=== PATIENT | female | born 1960 | race African-American/Black ===

== ENCOUNTER 2018-08-12 14:55 | Inpatient (IN) | payer MEDICAID ==
[~2018-08-12] VITALS: Ht 177.8 cm; Wt 49.6 kg
[~2018-08-12 14:55] MED LIST: ALEVE 220MG220 MG PO; LEVSIN0.125 M1 PO; NORCO 325 MG-51 TAB PO; PERCOCET 325 MG1 TA2 PO; PRIL40 PO; ULTRAM 50MG TAB50 MG PO; ZOFRAN8 MG PO
[2018-08-12 15:42] LABS: BASO # 0.1 (0.0-0.2); BASO % 0.7 % (0.0-2.0); EOS # 0.2 (0.0-0.7); EOS % 2.4 % (0-4.0); GRAN # 6.9 (1.4-6.5); GRAN % 68.2 % (42.2-75.2); HEMATOCRIT 40.9 % (37.0-47.0); HEMOGLOBIN 14.8 g/dl (12.5-16.0); LYMPH # 2.1 (1.2-3.4); LYMPH % 20.6 % (20.0-51.0); MEAN CELL VOLUME 77 fl (80.0-100.0); MEAN CORPUSCULAR HEMOGLOBIN 28 pg (27.0-31.0); MEAN CORPUSCULAR HGB CONC 36 g/dl (33.0-37.0); MONO # 0.8 (0.1-0.6); MONO % 7.7 % (1.7-9.3); PLATELET COUNT 221 K/mm3 (130-400); RED BLOOD COUNT 5.34 M/mm3 (4.10-5.30); REDCELL DISTRIBUTION WIDTH-CV 14.2 % (11.5-14.5)
[2018-08-12 15:52] LABS: COLLECTION METHOD CATHETER
[2018-08-12 16:04] LABS: MUCOUS Present /lpf; PH 6 (5-8); SQUAMOUS EPITHELIAL 0-2 /hpf; URINE APPEARANCE Clear; URINE BACTERIA None Seen /hpf; URINE BILIRUBIN Negative (NEGATIVE); URINE BLOOD Negative (NEGATIVE); URINE COLOR Yellow; URINE GLUCOSE Negative (NEGATIVE); URINE KETONE Trace (NEGATIVE); URINE LEUKOCYTE ESTERASE Trace (NEGATIVE); URINE NITRATE Negative (NEGATIVE); URINE PROTEIN(semi-quant) Negative (NEGATIVE)
[2018-08-12 16:05] LABS: TRICYCLIC ANTIDEPRESS URINE NEGATIVE
[2018-08-12 16:38] LABS: ALANINE AMINOTRANSFERASE 6 U/L (9-52); ALBUMIN 4.6 gm/dL (3.5-5.0); ALKALINE PHOSPHATASE 129 U/L (50-136); ANION GAP 11 mmol/L (7-16); AST,SGOT 29 U/L (15-37); BILIRUBIN,TOTAL 0.7 mg/dL (0.0-1.0); BLOOD UREA NITROGEN 9 mg/dL (7-17); CALCIUM 10.9 mg/dL (8.4-10.2); CARBON DIOXIDE 19 mmol/L (22-30); CHLORIDE 109 mmol/L (98-107); CREATINE KINASE 77 U/L (30-135); CREATININE, serum 0.61 (0.52-1.25); GLUCOSE 119 mg/dL (74-106); MAGNESIUM 1.8 mg/dL (1.6-2.3); POTASSIUM 3.6 mmol/L (3.4-5.0); SALICYLATE 6.9 mg/dL; SODIUM 139 mmol/L (137-145); TOTAL PROTEIN 8.4 gm/dL (6.4-8.2)
[2018-08-12 16:40] LABS: ACETAMINOPHEN < 10 ug/mL (10-30); ALCOHOL(ethanol),MEDICAL < 10 mg/dL; C-REACTIVE PROTEIN < 0.5 mg/dL (0.0-0.9)
[2018-08-12 16:52] LABS: TROPONIN-I < 0.012 ng/mL (0.000-0.035)
[2018-08-12 16:57] LABS: LIPASE 7460 U/L (23-300)
[2018-08-12 19:48] VITALS: BP 183/87; PULSE 92; TEMP 98.9
--- NOTE | 2018-08-12 19:50 | NUR ---
PT ADMITTED TO ROOM. THIS NURSE AND 2 HIDE AND SKIN COLERER'S TANSFERED PT FROM ER COT TO BED IN ROOM. PT WAS ONLY RESPONDING BY SAYING "MMHM" WHEN ASKED QUESTIONS, PT LAYING WITH EYES CLOSED. PT HAD SOID HERSELF AND DIDNT REALIZE IT, THIS NURSE AND AIDES CLEANED HER UP. PT WAS SLID FROM COT TO BED AND THEN ASSISED TO BE COMFORTABLE.
[2018-08-12 20:31] VITALS: BP 156/79; PULSE 84
--- NOTE | 2018-08-12 21:05 | NUR ---
THIS NURSE ADMINSTERED IV PROTONIX AND STARTED IV FLUIDS ORDERED. LOAN ORIGINATOR ORDER ACKNOWLEDGED, THIS NURSE DIDNT START LOAN ORIGINATOR AT THIS TIME. PT ASLEEP AND NOT AWAKENING BESIDES JUST MOVING ARMS AND HEAD AND GOING "MMHM" WHEN ASKED QUESTIONS, NOT OPENING EYES SPONTANEOUSLY.
[2018-08-12 22:02] VITALS: BP 152/73; PULSE 88; TEMP 99.2
--- NOTE | 2018-08-12 23:30 | NUR ---
PT AWOKE, EDUCATION PROVIDED ON METAL LATHER, PAPERS SIGNED AND PUT IN CHART. AWAITING METAL LATHER MEDICATION AT THIS TIME, VACCINATOR OBTAINING AT THIS TIME. PT WAS STATED SHE WANTED AND NEEDED TO GO TO SLEEP. PT HAS SOME ANXIOUSNESS ABOUT "NEEDING TO SLEEP" STATED HER PAIN WAS STILL THERE AND NOT BAD IT HAD BEEN EARLIER WHEN SHE WENT TO E.D.
[2018-08-12 23:49] VITALS: BP 164/75; PULSE 78; TEMP 98.7
[2018-08-13] VITALS (17 sets, daily range): BP systolic 141–173; BP diastolic 71–109; PULSE 63–89; TEMP 98.2–100.2
--- NOTE | 2018-08-13 00:15 | NUR ---
PT LAYING IN BED WITH EYES CLOSED. APPEARS TO BE SLEEPING AT THIS TIME.
--- NOTE | 2018-08-13 02:00 | NUR ---
THIS NURSE RECIEVED TRACTOR TRAILER TECHNICIAN DILAUDID FROM CHALK CUTTER AT THIS TIME. PT AWAKE NOW AND RATING PAIN AT A 6. SETTING UP TRACTOR TRAILER TECHNICIAN AT THIS TIME.
--- NOTE | 2018-08-13 02:30 | NUR ---
PT RECIEVED FIRST DOSE OF DILADID, PT REMAINS AWAKE AT THIS TIME. VITALS WNL. PT STATED SHE HAS A SMALL HEADACHE. WILL CONTINUE TO MONITOR
--- NOTE | 2018-08-13 05:12 | NUR ---
PT HAS C/O HEADACHE. PT REQUESTING TYLENOL IF ABLE, ATTEMPTED TO CALL JORDAN FERNANDO FOR POSSIBLE ORDER, UNABLE TO GET AHOLD OF HER AT THIS TIME. PT HAD SLATER APPRENTICE ABLE TO GIVE ANOTHER DOSE OF DILAUDID. GAVE PT A DOSE OF DILAUDID VIA SLATER APPRENTICE IN ATTEMPTS TO EASE HEADACHE PAIN.
--- NOTE | 2018-08-13 05:42 | NUR ---
THIS NURSE CONTACTED ZHANG ORTEGA ABOUT TYLENOL, ABDULLAHI STATED THAT THE DILADID IS ALL THIS PT IS GOING TO BE ABLE TO HAVE AND ESPECIALLY SINCE SHE IS NPO. WILL INFORM PT
[2018-08-13 08:00] LABS: BASO # 0.1 (0.0-0.2); BASO % 0.5 % (0.0-2.0); EOS % 0.3 % (0-4.0); GRAN # 6.5 (1.4-6.5); GRAN % 66.1 % (42.2-75.2); LYMPH # 2.2 (1.2-3.4); LYMPH % 22.8 % (20.0-51.0); MEAN CELL VOLUME 77 fl (80.0-100.0); MEAN CORPUSCULAR HGB CONC 36 g/dl (33.0-37.0); MEAN PLATELET VOLUME 11.5 fl (7.4-10.4); PLATELET COUNT 227 K/mm3 (130-400); RED BLOOD COUNT 4.46 M/mm3 (4.10-5.30)
[2018-08-13 08:01] LABS: HEMATOCRIT 34.4 % (37.0-47.0); HEMOGLOBIN 12.4 g/dl (12.5-16.0); MEAN CORPUSCULAR HEMOGLOBIN 28 pg (27.0-31.0)
[2018-08-13 08:20] LABS: CALCIUM 9.9 mg/dL (8.4-10.2); CHOLESTEROL RISK RATIO 2.2; CREATININE, serum 0.57 (0.52-1.25); POTASSIUM 3.7 mmol/L (3.4-5.0)
--- NOTE | 2018-08-13 08:28 | NUR ---
Pt assessment complete. Pt is drowsy but arousable, she is oriented to person and place only. Pt reports pain 6/10 to abdomen and bilateral legs, ASPHALT TILE FLOOR LAYER pump discussed with patient, who later states again "can you take care of this pain?" Pt instructed to do a demand dose when needing more pain medication, patient pushed green button at that time. Pt denies any SOB or N/V. IVF infusing into LAC without complications. Pt assisted to bedside cammode without complications. Pt has no further needs, call light within reach. Will continue to monitor.
--- NOTE | 2018-08-13 12:53 | NUR ---
While discharging patient's CENTER MEDICAL DIRECTOR pump patient requesting pain medications as soon as possible for pain 11/22. This nurse attempted to administer PRN [place], pt sleeping upon entry, does not appear to be in any distress. Will continue to monitor and administer when patient is more alert.
--- NOTE | 2018-08-13 15:52 | NUR ---
JULIUS met with the patient to discuss discharge plan. The patient lives alone in [place]. She states that her brother (Josh) and sister (Anabella) live in town. She reports that she also has a boyfriend, Hima. She reports independence with ADLs and does not use any DME. The patient's PCP is Dr. Iva Andrea and she receives her medications from [facility]. She reports no difficulties obtaining her meds. The patient does not have advanced directives in EMR, but she states that she believes she has them completed and that they are at her PCP's office. SW contacted her PCP's office. They report they do not have a copy. JULIUS explained and provided the patient with a DPOA-HC form. JULIUS addressed the patient's alcohol and drug use. The patient reports that she used to drink heavier, but that she just has one beer a day or none. She reports that she has been using cocaine every day and that she gets the cocaine from somebody she knows. JULIUS discussed drug and alcohol treatment options. The patient first reported that she would be interested in inpatient treatment. JULIUS discussed how the patient would need to contact [facility] for a screening. The patient then reported that she would not want to go through that process. She states she would rather try outpatient treatment. JULIUS discussed outpatient treatment options in the [place] area and informed the patient that JULIUS can provide the patient with information about the different outpatient treatment centers in [place]. The patient expressed interest in that. SW to provide the patient with that information and continue to follow.
--- NOTE | 2018-08-13 18:09 | NUR ---
Pt drowsy most of the day, she was arousable to voice. Occasional abdominal pain, relieved with PRN pain medications. Pt had no N/V or diarrhea through the day. IVF infusing without complications. Bed alarm in place, call light within reach.
--- NOTE | 2018-08-13 21:10 | NUR ---
PT C/O ABD PAIN 6-7. TO EARLY TO RECIEVE PRN NORCO, ADMINSTERED IV DILAUDID.
--- NOTE | 2018-08-13 22:20 | NUR ---
PT CONTINUES TO HAVE PAIN. ADMINSTERED PO NORCO. PT STATED TAHT SHE WANTED SOMETHING TO SLEEP IF POSSIBLE, GAVE PT PRN BENADRYL. NO OTHER CONSERNS VOICED AT THIS TIME.
[2018-08-14] VITALS (13 sets, daily range): BP systolic 145–183; BP diastolic 69–85; PULSE 57–87; TEMP 97–99.2
--- NOTE | 2018-08-14 00:56 | NUR ---
PT HAS C/O CHEST PAIN. PT VITALS OBTAINED AND LOOKED WNL. PT STATED IT WAS COMING AND GOING AND CHANGED WITH SWALLOWING. PT WAS GIVEN MYLANTA TOO SEE IF EPIGASTRIC RELATED. WILL CONTINUE TO MONITOR
--- NOTE | 2018-08-14 02:30 | NUR ---
PT STATED THAT THE MYLANTA THAT WAS GIVEN HELPED HER CHEST PAIN. ALSO HAD C/O RETURN OF ABD PAIN REQUESTED PRN PAIN PILL. PILL WAS GIVEN. NO OTHER COMPLAINTS AT THIS TIME.
--- NOTE | 2018-08-14 06:21 | NUR ---
SLEPT WELL REST OF PASSENGER ELEVATOR OPERATOR. NO OTHER CONSERNS OR ISSUES VOICED AT THIS TIME.
[2018-08-14 06:57] LABS: BASO # 0.1 (0.0-0.2); BASO % 0.9 % (0.0-2.0); EOS # 0.1 (0.0-0.7); EOS % 0.9 % (0-4.0); GRAN # 3.8 (1.4-6.5); GRAN % 56.1 % (42.2-75.2); HEMOGLOBIN 12.7 g/dl (12.5-16.0); LYMPH # 2.1 (1.2-3.4); MEAN CELL VOLUME 77 fl (80.0-100.0); MEAN CORPUSCULAR HEMOGLOBIN 28 pg (27.0-31.0); MEAN CORPUSCULAR HGB CONC 36 g/dl (33.0-37.0); MONO # 0.8 (0.1-0.6); PLATELET COUNT 215 K/mm3 (130-400); RED BLOOD COUNT 4.54 M/mm3 (4.10-5.30); REDCELL DISTRIBUTION WIDTH-CV 14.2 % (11.5-14.5)
[2018-08-14 06:59] LABS: HEMATOCRIT 34.9 % (37.0-47.0)
[2018-08-14 07:22] LABS: ALBUMIN 4.1 gm/dL (3.5-5.0); BILIRUBIN,TOTAL 1.2 mg/dL (0.0-1.0); CALCIUM 10.5 mg/dL (8.4-10.2); CREATININE, serum 0.55 (0.52-1.25); MAGNESIUM 1.7 mg/dL (1.6-2.3); PHOSPHOROUS 3.7 mg/dL (2.5-4.5); POTASSIUM 3.7 mmol/L (3.4-5.0); TOTAL PROTEIN 7.4 gm/dL (6.4-8.2)
--- NOTE | 2018-08-14 08:01 | NUR ---
Assessment complete. Pt is drowsy but arousable to voice. States she has pain in her ABD rated at a 6/10. Breathing is even and unlabored on room air. LF infusing, remains free of complications, and is CDI. Pt is resting quietly in the bed at this time and she denies further needs. Call light within reach, will continue to monitor.
--- NOTE | 2018-08-14 14:53 | NUR ---
hydralazine 10mg IVP given as ordered for BP 175/71 as ordered over 5 minuets. Patients agrees to administration and verbalizes understanding.
--- NOTE | 2018-08-14 15:09 | NUR ---
JULIUS and JULIUS student followed up with the patient to provide her with information on outpatient treatment options in [place]. The patient reports that she would like to be set up at [facility]. JULIUS contacted Noemi at [facility]. Noemi reports that the phones are down at the locations of the drug and alcohol treatment, but that she will contact and send the patient's information to their coordinator, Janae. She reports that Janae will then contact the patient for the referral and schedule an intake with the patient. JULIUS to inform the patient and continue to follow.
--- NOTE | 2018-08-14 18:29 | NUR ---
Pt has been resting on and off throughout the day. While awake she has had constant pain in her ABD. Pain medication administered on JUN. Pt has been able to tolerate minimal PO intake. She is resting quietly in the bed at this time and she denies further needs. Call light within reach.
--- NOTE | 2018-08-14 19:05 | NUR ---
Report given to ARNOL Cardoso.
--- NOTE | 2018-08-14 21:00 | NUR ---
Completed assessment and medication administration; PT tolerated all cares well; PT able to verbalize complaints and discomforts; PT A&Ox4, BS active x4, lungs CTAB, report of pain treated with PRN medications as ordered, ear plugs offered for aattempts to assist with sleep; No further assessed or reported concerns or complaints at time of exit; PT able to return to a comfortable position in bed with personal items and call light within reach; PT spouse resting in room on window couch; LR running at 100ml/hr to LFR IV; Will continue to monitor. CDA
--- NOTE | 2018-08-14 22:15 | NUR ---
PT refused Hydralazine order for HTN, stating it gave her full body pain when given this afternoon; Hospitalist JORDAN Auguste notified; Will continues to monitor BP status. MARKOSA
[2018-08-15] VITALS (14 sets, daily range): BP systolic 114–159; BP diastolic 53–81; PULSE 54–80; TEMP 98–99.3
--- NOTE | 2018-08-15 03:16 | NUR ---
PT resting intermittenly in bed throughout shift; Continues to complain of 4-6/10 abdominal pain with continues administration of PRN pain medication for pain control; No further acute complaints or concerns at times of rounds; Will continue to monitor. CDA
--- NOTE | 2018-08-15 06:59 | NUR ---
Report given to ARNOL Joseph; No significant changes or concerns at time of shift change. CDA
[2018-08-15 07:09] LABS: BASO # 0.1 (0.0-0.2); BASO % 0.8 % (0.0-2.0); EOS # 0.1 (0.0-0.7); EOS % 0.7 % (0-4.0); GRAN # 4.3 (1.4-6.5); HEMOGLOBIN 12.4 g/dl (12.5-16.0); LYMPH # 2.2 (1.2-3.4); LYMPH % 29.1 % (20.0-51.0); MEAN CELL VOLUME 77 fl (80.0-100.0); MEAN CORPUSCULAR HEMOGLOBIN 28 pg (27.0-31.0); MEAN CORPUSCULAR HGB CONC 36 g/dl (33.0-37.0); MEAN PLATELET VOLUME 11.2 fl (7.4-10.4); MONO # 0.9 (0.1-0.6); MONO % 12.1 % (1.7-9.3); PLATELET COUNT 229 K/mm3 (130-400); RED BLOOD COUNT 4.47 M/mm3 (4.10-5.30)
[2018-08-15 07:10] LABS: HEMATOCRIT 34.2 % (37.0-47.0)
[2018-08-15 07:29] LABS: BILIRUBIN,TOTAL 1.2 mg/dL (0.0-1.0); CALCIUM 10.1 mg/dL (8.4-10.2); CREATININE, serum 0.61 (0.52-1.25); POTASSIUM 3.6 mmol/L (3.4-5.0); TOTAL PROTEIN 7.1 gm/dL (6.4-8.2)
--- NOTE | 2018-08-15 08:00 | NUR ---
Assessment complete. Pt is AXO X3, states she has pain in her ABD rated at a 5/10. Breathing is even and unlabored on room air. LF infusing, remains free of complications, and is CDI. Pt is resting in the bed watching TV at this time and she denies further needs. Call light within reach, will continue to monitor.
--- NOTE | 2018-08-15 11:44 | NUR ---
[facility] contacted the patient to set up an outpatient appointment for drug and alcohol. The patient requested JULIUS to come to her room when they called. JULIUS then met with the patient while she was on the phone with Jeana. An appointment was made for , 08/28, at 0900 at [facility] on [address]. JULIUS informed the patient's PA and the community midwife of the appointment. JULIUS to continue to follow.
--- NOTE | 2018-08-15 18:57 | NUR ---
Pt has been resting on and off throughout the day. She has had constant pain in her ABD. Pain medcation administered on JUN. She is resting quietly in the bed watching TV at this time and she denies further needs. Call light within reach.
--- NOTE | 2018-08-15 19:05 | NUR ---
Report given to ARNOL Cardoso.
--- NOTE | 2018-08-16 00:46 | NUR ---
Completed assessment and medication administration; PT toelrated call cares well; Continues to report midline abdominal pain treated with PRN pain medication; PT A&Ox4, BS active x4, lungs CTA, continues Heparin as VTE, HRRR, LFA IV has LR running at 100ml/hr; No further assessed or verbalized conerns or complaints at time of exit; PT able to return to a comfortable position in bed with personal items and call light within reach; Will continue to monitor. CDA
[2018-08-16 01:44] VITALS: BP 136/66; PULSE 65; TEMP 98.6
--- NOTE | 2018-08-16 02:12 | NUR ---
PT resting well in bed; IV to LFA in place with LR running at 100ml/hr; No further assessed or reported concerns at time of rounds; PT resting in comfortable position in bed with personal items and call light within reach; Will continue to monitor. CDA
[2018-08-16 03:57] VITALS: BP 156/72; PULSE 70; TEMP 98.7
[2018-08-16 05:57] VITALS: BP 154/69; PULSE 56; TEMP 98.5
--- NOTE | 2018-08-16 06:54 | NUR ---
Report given to ARNOL Franklin; No significant changes or concerns at time of shift change. CDA
--- NOTE | 2018-08-16 08:00 | NUR ---
Patient assessment complete. Patient sleeping in bed, easy to arouse. Lung sounds clear throughout, heart RRR, bowel sounds present X4. No edema present. Patient denies SOB, chest pain, dizziness or palpitations. Pulses strong bilaterally. LFA IV has no redness, drainage or edema. Dr. Massey in to see patient, fluids DC'd. Patient complaining of epigastric pain, mostly occuring when she eats. Patient ate some breakfast this morning. patient scoring 0-1 on etoh detox. Neuro checks completed. Denies other needs at this time.
[2018-08-16 08:08] VITALS: BP 136/58; PULSE 63; TEMP 98.6
[2018-08-16 08:16] LABS: BASO # 0.1 (0.0-0.2); BASO % 0.9 % (0.0-2.0); EOS # 0.1 (0.0-0.7); EOS % 1.7 % (0-4.0); GRAN # 3.5 (1.4-6.5); HEMOGLOBIN 11.4 g/dl (12.5-16.0); LYMPH # 2.1 (1.2-3.4); MEAN CELL VOLUME 78 fl (80.0-100.0); MEAN CORPUSCULAR HEMOGLOBIN 28 pg (27.0-31.0); MEAN CORPUSCULAR HGB CONC 36 g/dl (33.0-37.0); MEAN PLATELET VOLUME 11.1 fl (7.4-10.4); MONO # 0.8 (0.1-0.6); MONO % 12.2 % (1.7-9.3); PLATELET COUNT 193 K/mm3 (130-400); REDCELL DISTRIBUTION WIDTH-CV 13.5 % (11.5-14.5)
[2018-08-16 08:25] LABS: HEMATOCRIT 31.8 % (37.0-47.0)
[2018-08-16 08:38] LABS: ALBUMIN 3.6 gm/dL (3.5-5.0); BILIRUBIN,TOTAL 0.8 mg/dL (0.0-1.0); CALCIUM 9.8 mg/dL (8.4-10.2); CREATININE, serum 0.59 (0.52-1.25); POTASSIUM 3.3 mmol/L (3.4-5.0); TOTAL PROTEIN 6.4 gm/dL (6.4-8.2)
[2018-08-16 09:57] VITALS: BP 144/59; PULSE 64; TEMP 98.4
--- NOTE | 2018-08-16 13:50 | NUR ---
Patient requesting "something to help her go to the bathroom". Upon entering, patient in bed, relative/friend in wheelchair, another relative friend on toilet who was originally from the ER. student records specialist assisting "friend" off toilet to wheelchair. Patient up to help "friend" in wheelchair as well. No other needs at this time.
[2018-08-16 14:00] VITALS: BP 149/73; PULSE 57; TEMP 98.3
[2018-08-16] MEDS ORDERED: NORCO 325 MG-51 TAB PO (15:19)
[2018-08-16] MEDS ORDERED: ZOFRAN 4MG T4 MG/TAB PO (15:20)
[2018-08-16] MEDS ORDERED: PROTONIX 40MG T40 MG PO (15:21)
--- NOTE | 2018-08-16 15:45 | NUR ---
Patient being discharged, discharge instructions reviewed and discussed. All questions answered regarding discharge answered. No other questions at this time. LFA IV discontinued. Catheter tip intact. No infiltration or phlebitis. Patient escorted out via wheelchair by this nurse.
== END 2018-08-16 15:45 | disposition home or self-care (01) | DRG 438 ==
LOC: COL.ER 14:55 → EDBD 14:56 → COL.ER 17:19 → MEDICAL 17:19
PROVIDERS: Emergency Medicine; Family Medicine; Physician Assistant; ADMIT Hospitalist
DX: K85.20 Alcohol induced acute pancreatitis without necrosis or infection (principal); E43 Unspecified severe protein-calorie malnutrition; Z68.1 Body mass index [BMI] 19.9 or less, adult; F10.20 Alcohol dependence, uncomplicated; Y90.0 Blood alcohol level of less than 20 mg/100 ml; F17.210 Nicotine dependence, cigarettes, uncomplicated; F14.10 Cocaine abuse, uncomplicated; K52.9 Noninfective gastroenteritis and colitis, unspecified; E83.52 Hypercalcemia; I10 Essential (primary) hypertension; T47.6X1A Poisoning by antidiarrheal drugs, accidental (unintentional), initial encounter
CPT/HCPCS: OP; 99222-AI; 99233-AI; 99239; A9284; C9113; J0360; J1170; J1630; J1644; J2060; J2405; J2765; J3010; J7030; J7120; Q9967

== ENCOUNTER → 2018-08-26 | Outpatient (CLI) | payer MEDICAID ==
[~2018-08-26] MED LIST changes: +PROTONIX 40MG T40 MG PO; +ZOFRAN 4MG T4 MG/TAB PO
[2018-08-26 17:47] LABS: BASO # 0.1 (0.0-0.2); EOS # 0.4 (0.0-0.7); EOS % 5.2 % (0-4.0); GRAN # 3.4 (1.4-6.5); GRAN % 48.6 % (42.2-75.2); HEMOGLOBIN 12.3 g/dl (12.5-16.0); LYMPH # 2.4 (1.2-3.4); MEAN CELL VOLUME 80 fl (80.0-100.0); MEAN CORPUSCULAR HEMOGLOBIN 28 pg (27.0-31.0); MEAN CORPUSCULAR HGB CONC 35 g/dl (33.0-37.0); MEAN PLATELET VOLUME 11.8 fl (7.4-10.4); MONO # 0.8 (0.1-0.6); MONO % 11.1 % (1.7-9.3); PLATELET COUNT 345 K/mm3 (130-400); RED BLOOD COUNT 4.43 M/mm3 (4.10-5.30); REDCELL DISTRIBUTION WIDTH-CV 14.5 % (11.5-14.5)
[2018-08-26 17:49] LABS: ALBUMIN 4.3 gm/dL (3.5-5.0); BILIRUBIN,TOTAL 0.5 mg/dL (0.0-1.0); CREATININE, serum 0.7 (0.52-1.25); POTASSIUM 4.2 mmol/L (3.4-5.0); TOTAL PROTEIN 7.6 gm/dL (6.4-8.2)
[2018-08-26 18:01] LABS: HEMATOCRIT 35.2 % (37.0-47.0)
== END ==
LOC: ZCOL.LAB 16:29
PROVIDERS: Family Medicine
DX: K85.90 Acute pancreatitis without necrosis or infection, unspecified (principal)

== ENCOUNTER → 2018-12-17 | Outpatient (CLI) | payer MEDICAID | LOC: COL.RAD 08:13 | DX: M17.11 Unilateral primary osteoarthritis, right knee (principal) ==

== ENCOUNTER 2019-01-20 06:13 | Emergency (ER) | payer MEDICAID ==
[~2019-01-20] VITALS: Ht 172.7 cm; Wt 50.0 kg
[2019-01-20 06:19] VITALS: TEMP 97.8
[2019-01-20 06:38] LABS: BASO % 0.1 % (0.0-2.0); EOS % 0.4 % (0-4.0); GRAN # 4.4 (1.4-6.5); HEMOGLOBIN 12.7 g/dl (12.5-16.0); LYMPH # 1.9 (1.2-3.4); LYMPH % 26.6 % (20.0-51.0); MEAN CELL VOLUME 81 fl (80.0-100.0); MEAN CORPUSCULAR HEMOGLOBIN 29 pg (27.0-31.0); MEAN CORPUSCULAR HGB CONC 36 g/dl (33.0-37.0); MONO # 0.8 (0.1-0.6); MONO % 10.8 % (1.7-9.3); PLATELET COUNT 235 K/mm3 (130-400); REDCELL DISTRIBUTION WIDTH-CV 14.3 % (11.5-14.5)
[2019-01-20 06:45] LABS: HEMATOCRIT 35.8 % (37.0-47.0)
[2019-01-20 06:50] LABS: PROTHROMBIN TIME 11.1 SECONDS (9.7-12.8)
[2019-01-20 06:52] LABS: ALANINE AMINOTRANSFERASE 10 U/L (9-52); ALBUMIN 4.3 gm/dL (3.5-5.0); ALKALINE PHOSPHATASE 67 U/L (50-136); ANION GAP 7 mmol/L (7-16); AST,SGOT 24 U/L (15-37); BILIRUBIN,TOTAL 0.6 mg/dL (0.0-1.0); BLOOD UREA NITROGEN 17 mg/dL (7-17); CALCIUM 9.5 mg/dL (8.4-10.2); CARBON DIOXIDE 26 mmol/L (22-30); CHLORIDE 106 mmol/L (98-107); CREATININE, serum 0.62 (0.52-1.25); GLUCOSE 89 mg/dL (74-106); MAGNESIUM 2.2 mg/dL (1.6-2.3); POTASSIUM 4.4 mmol/L (3.4-5.0); SODIUM 138 mmol/L (137-145); TOTAL PROTEIN 7.3 gm/dL (6.4-8.2)
[2019-01-20 06:53] LABS: PARTIAL THROMBOPLASTIN TIME 25.5 SECONDS (26.0-37.0)
[2019-01-20 06:57] LABS: ALCOHOL(ethanol),MEDICAL < 10 mg/dL
[2019-01-20 07:04] LABS: COLLECTION METHOD CATHETER
[2019-01-20] MEDS ORDERED: MOBIC 7.5MG7.5 MG PO (07:06)
[2019-01-20] MEDS ORDERED: VOLTAREN SR25 MG/TAB PO (07:07)
[2019-01-20] MEDS ORDERED: FEMRING0.1 MG/24 VG (07:07)
[2019-01-20] MEDS ORDERED: BENTYL 10MG10 MG/CAP PO (07:07)
[2019-01-20 07:11] LABS: MUCOUS Present /lpf; PH 6 (5-8); SQUAMOUS EPITHELIAL 0-2 /hpf; URINE APPEARANCE Clear; URINE BACTERIA Rare /hpf; URINE BILIRUBIN Negative (NEGATIVE); URINE BLOOD Negative (NEGATIVE); URINE COLOR Yellow; URINE GLUCOSE Negative (NEGATIVE); URINE KETONE Negative (NEGATIVE); URINE LEUKOCYTE ESTERASE Negative (NEGATIVE); URINE NITRATE Negative (NEGATIVE); URINE PROTEIN(semi-quant) Negative (NEGATIVE); URINE UROBILINOGEN Negative (NEGATIVE)
[2019-01-20 07:14] LABS: TROPONIN-I < 0.012 ng/mL (0.000-0.035)
[2019-01-20 07:27] LABS: TRICYCLIC ANTIDEPRESS URINE NEGATIVE
[2019-01-20 07:30] VITALS: BP 136/76; PULSE 59
== END 2019-01-20 07:40 | disposition short-term general hospital (02) ==
LOC: COL.ER 06:13
PROVIDERS: Emergency Medicine
DX: I63.9 Cerebral infarction, unspecified (principal); I10 Essential (primary) hypertension; F10.20 Alcohol dependence, uncomplicated; F17.210 Nicotine dependence, cigarettes, uncomplicated
CPT/HCPCS: J7030; Q9967

== ENCOUNTER 2019-02-01 15:19 | Inpatient (IN) | payer MEDICAID ==
[~2019-02-01] VITALS: Ht 170.2 cm; Wt 50.0 kg
[~2019-02-01 15:19] MED LIST changes: +BENTYL 10MG10 MG/CAP PO; +FEMRING0.1 MG/24 VG; +MOBIC 7.5MG7.5 MG PO; +VOLTAREN SR25 MG/TAB PO
[2019-02-01] MEDS ORDERED: ASPIRIN 81M81 MG/TA2 PO (15:42)
[2019-02-01] MEDS ORDERED: LIPITOR 40MG TA40 MG PO (15:42)
[2019-02-01] MEDS ORDERED: FOLIC ACID 11 MG/TA1 PO (15:43)
[2019-02-01] MEDS ORDERED: NATURE'S BLEND100 M2 PO (15:43)
[2019-02-01] MEDS ORDERED: HEPARIN SOD5000 U/ML SQ (15:47)
--- NOTE | 2019-02-01 19:35 | NUR ---
Report from LUDA Najera nurse, she stated pt was to discharge around 1400 via "'s friend's car." Called Dania at 1830 when pt had not yet arrived, she returned call to state they were almost to [facility]. Pt arrived in ER admissions at 1914 with friend and report has been given to ARNOL Ramirez. SQL APPLICATION DEVELOPER is in room doing vitals. This nurse entered order set and completed med rec and plan of care. Remaining admission checklist Ashley agrees to do. Informed IPR liason Ellie of pt's delay, left voicemail that pt arrived.
[2019-02-01 19:58] VITALS: BP 100/48; PULSE 58; TEMP 99.2
--- NOTE | 2019-02-01 22:56 | NUR ---
Patient arrived to the unit at 1930 to room 340. Patient transferred to bed. Bed alarm on. Fall risk bracelet in place as well as restricted limb bracelet. Patient resting in bed, watching TV. Call light within reach.
--- NOTE | 2019-02-02 01:55 | NUR ---
Patient resting in bed. Initial assessment complete. Up to BSC x1. Small formed BM noted. Denies pain. Bed alarm on. Call light within reach.
--- NOTE | 2019-02-02 05:46 | NUR ---
Patient had uneventful night. Resting in bed. Up to BSC one time and had small formed BM. Denies pain. Bed alarm on. Call light within reach.
[2019-02-02 06:22] VITALS: BP 90/39; PULSE 61; TEMP 98.2
--- NOTE | 2019-02-02 08:45 | NUR ---
Patient resting in bed at this time, call light in reach and bed alarm on. Patient was incontinent of urine this morning and was not able to tell staff when she was wet. Whe was able to roll from L to R independently. Patient denies pain this morning.
--- NOTE | 2019-02-02 09:50 | NUR ---
Patient is working with therapy at this time. She refused her first breakfast meal this morning. The kitchen was called and patient requested eggs and etienne. This was delivered after 8:30 AM this morning. Patient did eat the second meal delivered to her. shauna Lamb was called and she will discuss menus with patient today so she is aware of the menu and schedule. Patient has dysphagia and staff will need to continue to be patient's advocate with her food orders.
--- NOTE | 2019-02-02 10:13 | NUR ---
Initial visit; Patient thanked Finger Waver for stopping and letting her know of the availability of spiritual care and Finger Waver's presence throughout the day.
[2019-02-02 17:04] VITALS: BP 106/53; PULSE 66; TEMP 98.3
--- NOTE | 2019-02-02 19:58 | NUR ---
Patient rests in bed. Unable to state , year or month. Reports pain RLL but declines tylenol or warm pack. Ice cream given for snack.
--- NOTE | 2019-02-02 22:35 | NUR ---
RESTS QUIETLY IN BED RESPIRATIONS WITH EASE. CALLED AND STATES WILL BE INTO SEE PATIENT TOMORROW AM.
--- NOTE | 2019-02-03 02:42 | NUR ---
Patient has been resting quietly in bed. Up to BS earlier with STOP ATTACHER and was incontinent of urine.
[2019-02-03 04:45] VITALS: BP 103/47; PULSE 63; TEMP 98.2
--- NOTE | 2019-02-03 06:22 | NUR ---
Awakened for am med/reviewed and given. States "doing ok". Returns to resting with eyes closed.
--- NOTE | 2019-02-03 10:00 | NUR ---
Patient attended therapies this morning. Denied pain. Reported sleeping well last night, but yawning alot this morning. Patient's is here visiting at this time.
--- NOTE | 2019-02-03 12:54 | NUR ---
Patient resting in recliner at this time, resting on couch. Patient denies pain or any questions at this time.
[2019-02-03 17:31] VITALS: BP 124/53; PULSE 63; TEMP 98.3
--- NOTE | 2019-02-03 19:25 | NUR ---
Patient asked for a suppository and this was administered. Approx. 30 to 40 minutes later staff heard patient's bed alarm go off. Upon staff entering room patient was found being transferred by her without a gait belt to the toilet. Patient's took BSC from bathroom and placed next to patient's bed and said that his was trying to get up on her own so decided to help her. Patient and were educated on the need to use the call light and wait for staff to arrive before transferring. Patient's seem to voice understanding. Patient was found transferring on her own earlier today per Lalitha/RAI. Will continue to monitor. Communicated this to night nurse.
--- NOTE | 2019-02-03 19:32 | NUR ---
This nurse communicated to Soot Blower nurse that patient's is spending the night in her room. He brought his bag of clothing with him, so not sure how long he will be staying. He was supposed to bring patient some clothing, but did not do that today. Staff will be trying to wash her clothing tonight. sewer system supervisor was notified of this above as well.
--- NOTE | 2019-02-03 20:30 | NUR ---
Patient awake and reports pain right knee. HS meds along with tramadol for pain reviewed and taken 1 at a time. Snack of ice cream given. Patient continent at this time. Right side remains flaccid. at bedside resting on window couch.
--- NOTE | 2019-02-04 02:12 | NUR ---
Rests with eyes closed. Respirations with ease.
[2019-02-04 04:05] VITALS: BP 98/50; PULSE 55; TEMP 98
--- NOTE | 2019-02-04 05:44 | NUR ---
PATIENT RESTS WITH EYES CLOSED.
--- NOTE | 2019-02-04 06:30 | NUR ---
Bedside shift report received from ARNOL Leal. Pt in bed resting on side, denies needs, will continue to monitor.
[2019-02-04 06:56] LABS: HEMOGLOBIN 11.4 g/dl (12.5-16.0); MEAN CELL VOLUME 83 fl (80.0-100.0); MEAN CORPUSCULAR HEMOGLOBIN 29 pg (27.0-31.0); MEAN CORPUSCULAR HGB CONC 35 g/dl (33.0-37.0); MEAN PLATELET VOLUME 10.8 fl (7.4-10.4); PLATELET COUNT 310 K/mm3 (130-400); RED BLOOD COUNT 3.96 M/mm3 (4.10-5.30); REDCELL DISTRIBUTION WIDTH-CV 14.2 % (11.5-14.5)
[2019-02-04 06:59] LABS: HEMATOCRIT 32.7 % (37.0-47.0)
[2019-02-04 07:10] LABS: CALCIUM 10.3 mg/dL (8.4-10.2); CREATININE, serum 0.52 (0.52-1.25); MAGNESIUM 1.8 mg/dL (1.6-2.3); POTASSIUM 4.1 mmol/L (3.4-5.0)
--- NOTE | 2019-02-04 08:56 | NUR ---
Admission QIM scores were reviewed by the team. Code of 1 chosen for lower body dressing was determined by team discussion to be the most usual performance for this patient during the assessment period. Code of 3 chosen for lying to sitting side of bed was determined by team discussion to be the most usual performance for this patient during the assessment period. Code of 3 chosen for sit to stand was determined by team discussion to be the most usual performance for this patient during the assessment period. Code of 2 chosen for chair/jwh-uk-[id number] transfer was determined by team discussion to be the most usual performance for this patient during the assessment period. Code of 1 chosen for walking 10 feet was determined by team discussion to be the most usual performance for this patient during the assessment period. --Alexandria Fields, GLASS CUTTER HAND/Inpatient Rehad Temporary Administrative Assistant
--- NOTE | 2019-02-04 09:09 | NUR ---
Assessment charted. Pt has expressive aphasia, able to answer all orientation questions except for own . Per Alexandria in ST, this is her expressive aphasia. Pt states pain to RLE is 10/10, PRN pain meds provided per request. Not able to move RLE without aid of L arm and able to anode machine operator my fingers with R hand but does not move arm without assistance of left. resting in bed, alarm on, will continue to monitor.
--- NOTE | 2019-02-04 15:10 | NUR ---
nursery worker met with patient to discuss discharge planning. Patient states she lives in [place] with her male aviation engineer, Hima, and plans to return there upon discharge. Patient states she was independent with her activities of daily living, including preparing her own meals and driving. Patient states Dr Andrea is her primary care provider and confirms that [facility] Duncan is active and covers the cost of her home medications. Patient did not utilize durable medical equipment in the home prior to her illness. Worker attended rehab team meeting this date. Patient will be re-evaluated next week for continued stay and discharge plans.
--- NOTE | 2019-02-04 15:43 | NUR ---
product development worker met with patient and provided team conference notes. Patient will be re-evaluated next week.
[2019-02-04 16:21] VITALS: BP 120/50; PULSE 55; TEMP 98.2
--- NOTE | 2019-02-04 17:32 | NUR ---
PATIENT HAS BEEN FOUND GETTING OUT OF CHAIR BACK TO BED WITHOUT CALLING FOR HELP, NURSE ENTERED ROOM DUE TO BED/CHAIR ALARMING AND PATIENT NOT AGREEABLE TO CALL STAFF BEFORE TRANSFERING SELF. RE-EDUCATED PATIENT PRINCIPAL CLERK LIGHT USE, PRN PAIN MEDS GIVEN X2 DURING SHIFT, XRAYS DONE AT BEDSIDE ORDERED. WILL GIVE BEDSIDE SHIFT REPORT TO MAGAZINE KEEPER NURSE WHO WILL RESUME CARE.
--- NOTE | 2019-02-04 21:00 | NUR ---
PT RESTING IN BED. SLEEPING ON SOFA. PT HAS DIFFICULTY WITH SPEECH. TONGUE DEVIATED TO RT. RT SIDE MOUTH DROOP. RT SIDE FLACCID. LESS THAN AVG BODY WEIGHT. REFUSED HS SNACK TONIGHT. REMINDED PT OF IMPORTANCE OF SAFETY PRECAUTIONS. TO USE CALL LIGHT WHEN NEEDING UP. PT RPORT X1 SM STOOL YEASTERDAY BUT STILL FEEL CONSTIPATED. SEE MAR FOR BOWEL MEDS GIVEN. PT DENIES PAIN AT THIS TIME. CALL LIGHT IN REACH. BED ALARM SET.
--- NOTE | 2019-02-05 | NUR ---
GAVE BOWEL MEDS EARLIER. NO BM YET.
--- NOTE | 2019-02-05 05:02 | NUR ---
PT RESTING. NO DISTRESS. MAX ASSIST TO BSC WITH QUAD CANE. VERY UNSTEADY. VOIDED APRROX 250CC OF SUNITA CLEAR URINE. STILL NO BM THIS SHIFT. NO BLADDER INCONTINENCE THROUGH THE NIGHT. NEEDS MUCH ENCOURAGEMENT TO DRINK FLUIDS. CALL LIGHT IN REACH. BED ALARM SET.
[2019-02-05 05:55] VITALS: BP 102/51; PULSE 49; TEMP 98.2
--- NOTE | 2019-02-05 15:00 | NUR ---
Report from ARNOL Grey. Pt refuses to sit up in chair for meals, instead sat up in bed, aspiration precautions in place. Pt impulsive, sits up on bedside without calling, was incont of concentrated urine in pull up, assisted with changing and wilson cares. Agree with Nguyen's assessment, no edema. Pt has delayed swallowing, takes pills one at a time, expressive aphasia. Bowel regime started. Max one assist for pivot transfer with gait belt to left.
[2019-02-05 16:40] VITALS: BP 114/43; PULSE 62; TEMP 98.1
--- NOTE | 2019-02-05 16:59 | NUR ---
Pt sets off bed alarm from repositioning herself in bed. Hima visiting this evening, introductions were made between him and this nurse.
--- NOTE | 2019-02-06 01:56 | NUR ---
PATIENT DOING WELL TONIGHT. TOOK SCHEDULED MEDS ONE AT A TIME WITH INCREASED CUING TO SWALLOW. DENIES PAIN OR NEED FOR PAIN MEDICATION. IS AT BEDSIDE. BED ALARM WENT OFF AND PATIENT FOUND SITTING AT EDGE OF BED. ASSISTED TO BED SIDE COMMODE WITH X2 ASSIST. PATIENT HAD UNMEASURED VOID AND MEDIUM LOOSE CRAWFORD STOOL. PATIENT RETURNED TO BED X1 ASSIST. R LEG AND ARM ELEVATED. NO FURTHER NEEDS AT THIS TIME. WILL CONTINUE TO MONITOR.
[2019-02-06 05:03] VITALS: BP 97/49; PULSE 51; TEMP 98.3
[2019-02-06 07:33] VITALS: BP 99/52
--- NOTE | 2019-02-06 09:28 | NUR ---
Report from ARNOL Hull. ARNOL Cedillo in training assisted pt to pivot to BSC, pt was continent of urine, uses gait belt and hemiwalker, impulsive, needs reminded for safety to wait for staff, bed alarm on. Delayed swallowing when taking pills one at a time. ST observed this. Enc to take fluids PO d/t low BPs. Hima visited this morning.
--- NOTE | 2019-02-06 13:03 | NUR ---
Pt declined tylenol, too soon for ultram. Enc water, offered other beverages, declined.
--- NOTE | 2019-02-06 14:29 | NUR ---
pt impulsively up from chair to bed, assisted rest of way into bed, alarm on, call lt in reach.
--- NOTE | 2019-02-06 14:42 | NUR ---
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 Expressive aphasia, oriented to self and needs cued for . SCDs to BLE, yellow grippers in place. Elevated RUE, RLE on pillows.
--- NOTE | 2019-02-06 14:49 | NUR ---
No edema, urine is concentrated yellow.
[2019-02-06 16:38] VITALS: BP 97/58; PULSE 64; TEMP 98.2
--- NOTE | 2019-02-06 17:34 | NUR ---
TOOK 2 BITES OF SUPPER ENTREE AND REFUSED REST OF MEAL ITEM, AGREED TO TAKE VANILLA ICE CREAM SHAKE WITH POOR INTAKE AT SUPPER.
--- NOTE | 2019-02-06 20:45 | NUR ---
HS meds all reviewed and given along with tramadol for pain right knee. Patient alert just needs prompting. Able to state month and year but not . Reports yes to after nurse states. rests on window couch. Patient does have delayed fax machine repairer moderate strength to right hands. Lifts right leg into bed with left arm. Is min-mod 1 assist to BSC and manages pants down/assisted with pants up. Later reports pain med helped and pain now 5/10.
--- NOTE | 2019-02-07 02:49 | NUR ---
Patient rests with eyes closed. Respirations with ease.
[2019-02-07 05:07] VITALS: BP 97/49; PULSE 55; TEMP 98.5
--- NOTE | 2019-02-07 05:29 | NUR ---
PATIENT HAS BEEN RESTING WITH EYES CLOSED. STATES "YA" TO SLEEPING WELL AND DENIES NEEDS.
--- NOTE | 2019-02-07 11:00 | NUR ---
Patient attending group therapy at this time. Patient reported sleeping okay last night. Her stayed with her over night. Patient took pills whole with water this morning. Tolerated diet well. Denied pain this morning. Will continue to monitor.
--- NOTE | 2019-02-07 12:25 | NUR ---
Patient resting in bed eating lunch at this time. Required this staff to assist with putting ketchup on her hamburger and removing lids off drinks. Patient is able to eat by herself with using the left hand only. Call light in in reach and slip proof socks are on.
--- NOTE | 2019-02-07 16:28 | NUR ---
Patient currently resting in bed at this time, call light in reach and watching TV at this time.
[2019-02-07 16:50] VITALS: BP 105/51; PULSE 61; TEMP 98.6
--- NOTE | 2019-02-07 20:30 | NUR ---
Assisted mod assist to BSC-tends to flop down and reminders given. Voids and wipes self. Max assist to pivot back to bed/legs became twisted slightly. Assisted to RLE into bed. SCD's on. HS meds along with tramadol for pain reviewed and given. stays with patient through the night.
--- NOTE | 2019-02-07 22:55 | NUR ---
Patient rests with eyes closed. Respirations with ease.
--- NOTE | 2019-02-08 03:02 | NUR ---
Patient rests with eyes closed. Respirations with ease.
[2019-02-08 05:55] VITALS: BP 100/47; PULSE 95; TEMP 98.2
--- NOTE | 2019-02-08 05:59 | NUR ---
AWAKENED FOR AM MED AND RETURNS TO RESTING WITH EYES CLOSED. DENIES NEEDS.
--- NOTE | 2019-02-08 09:48 | NUR ---
Patient resting in bed at this time, call light in reach and bed alarm is on. Patient's is visiting at this time. Patient was continent of urine this morning. She was a one assist with transferring with gait belt and walker to the commode. She ate 100% of her breakfast this morning. Denies pain at this time. Will continue to monitor.
--- NOTE | 2019-02-08 14:47 | NUR ---
Patient had friends stop by to see her. She is currently resting in her recliner, chair alarm on, call light in reach and slip proof socks on.
[2019-02-08 16:51] VITALS: BP 105/55; PULSE 56; TEMP 98.5
--- NOTE | 2019-02-08 20:25 | NUR ---
Pt. sitting up in bed at this time. Pt. is A&OX3, assessment complete. Pt. reports pain at a 6 on pain scale, gave ultram per orders. Pt. denies further needs, call light within reach.
[2019-02-09 04:16] VITALS: BP 109/48; PULSE 57; TEMP 97.5
--- NOTE | 2019-02-09 09:00 | NUR ---
PATIENT REQUIRED FREQUENT CUES WITH BSC TRANSFER AFTER BREAKFAST, REPORTS IMMEDIATE NEED TO VOID AND DID NOT USE HEMIWALKER DESPITE FREQUENT CUES, GAIT BELT PLACE, PATIENT DID USE HEMIWALKER FROM BSC TO BED, PLACED IN BED, WANTING PAIN MEDS WHEN NEXT AVAILABLE, SPECIFIED WANTING ONLY TRAMADOL. REFUSED OFFER OF TYLENOL.
--- NOTE | 2019-02-09 09:56 | NUR ---
Report from ARNOL Martínez. Nguyen RN in training to provide total cares today. This nurse responded to pt's bed alarm going off x3 this morning as she was shifting in bed, pt known to be impulsive OOB. Hima visiting. Pt finished breakfast, set up for oral cares, provided warm washcloth for face.
--- NOTE | 2019-02-09 10:34 | NUR ---
REPORT RECEIVED FROM [facility] [facility] FOR THE FEEBLE-MINDED SHIFT NURSE, PATIENT CONTINUES WITH MAX ASSIST OF ONE WITH SIT TO STAND TRANSFERS. OBSERVED AT THIS TIME, WAS IN HURRY TO GET ON BSC, DID NOT USE HEMIWALKER DESPITE FREQUENT REMINDERS TO USE HEMIWALKER, WITH GAIT BELT IN PLACE, PATIENT USED ARMS OF BSC TO ASSIST WITH TRANSFERS. IS ORIENTED WITH PROMPTING DUE TO [place].
[2019-02-09 16:44] VITALS: BP 102/48; PULSE 57; TEMP 98.5
--- NOTE | 2019-02-09 18:02 | NUR ---
WEIGHT NOT DONE, PATIENT REFUSED
--- NOTE | 2019-02-09 19:39 | NUR ---
Report received from ARNOL Cedillo.
--- NOTE | 2019-02-09 19:39 | NUR ---
EVENING SNACK TAKEN BY SPOUSE, PATIENT REPORTS NOT WANING DRINK. REQUESTED/GIVEN PAIN MEDICATION AT SHIFT CHANGE. REPORT GIVEN TO CUTTING MACHINE OFFBEARER NURSE.
[2019-02-10 05:10] VITALS: BP 93/51; PULSE 48; TEMP 98.2
--- NOTE | 2019-02-10 05:12 | NUR ---
Patient rested well throughout the night. Requested pain medication at shift change, but hasn't requested any since then. Spouse at bedside. Patient requires assist with hygiene, incontinent cares provided. Will continue to monitor patient.
--- NOTE | 2019-02-10 08:30 | NUR ---
REPORT RECEIVED FROM STRAW HAT MACHINE OPERATOR NURSE. PATIENT CONTINUES TO REQUIRE MAXIMUM ASSIST X1 WITH BED TO BEDSIDE COMMODE TRANSFERS WITH GAIT BELT. FOLLOWS COMMANDS WITH STEP BY STEP INSTRUCTIONS FOR PATIENT REGARDING PIVOT TRANSFERS AND RESPONDS WELL WITH NO FURTHER QUESTIONS. OBSERVED PATIENT INCONTINENT OF LARGE AMOUNT OF YELLOW URINE ADULT DIAPER PANTS AND DISPOSABLE BED PAD. ENCOURAGED PATIENT TO INCREASE ORAL FLUID INTAKE TO HELP WITH INCREASING BLOOD PRESSURE AFTER CONFIRMING FOR PATIENT, BLOOD PRESSURE IS LOWER COMPARED TO YESTERDAY, SEE VITAL SIGNS RESULTS. PATIENT VOICES UNDERSTANDING OF INSTRUCTIONS. NO OTHER NEEDS REPORTED.
--- NOTE | 2019-02-10 11:53 | NUR ---
Visited w/ pt. Inquired how things have been going & was told she has been doing fine. Inquired about how therapy has been going & if she feels she has had any progress. She told SW that she feels she has been making progress. Explained to her that Team Conference is tomorrow & SW will review afterwards. Pt had no question/concerns at this time.
--- NOTE | 2019-02-10 14:53 | NUR ---
SITTING UP IN CHAIR WATCHING TV AND DENIES ANY NEEDS OR COMPLAINTS CURRENTLY. REFUSED OFFER NUTRITIONAL SUPPLEMENT ALREADY ON BEDSIDE TRAY AT THIS TIME. PATIENT RESPONDED "NOT RIGHT NOW"
[2019-02-10 16:04] VITALS: BP 107/44; PULSE 57; TEMP 98.4
--- NOTE | 2019-02-10 17:37 | NUR ---
RESTING WITH NO COMPLAINTS IN BED, SPOUSE AT BEDSIDE. REPORTS HAS DRANK PART OF AFTERNOON SNACK AND KEPT MILK OFF TRAY AT THIS TIME.
--- NOTE | 2019-02-10 19:20 | NUR ---
Bedside report given to assistant casino shift manager nurse with care resumed. Patient has yellow socks on, call light within reach. Patient resting in bed with no complaints. Spouse in room.
--- NOTE | 2019-02-10 21:15 | NUR ---
Patient rests in bed. Quiet flat affect. HS meds all reviewed and given. Patient states "not enough" to colace for constipation and unable to state suppository/verbal cueing required. Declined miralax. Suppository given and up 45minutes later with assist to BSC and had small soft formed bm. Reports pain "ok" and doesn't rate on scale.
--- NOTE | 2019-02-10 23:10 | NUR ---
Patient requests nurse but unable to state area of pain/needs without verbal cueing. Reports hemorroidal cream and states no to suppository and yes to cream. Pamela ORTEGA notified and order received. tool room supervisor called for med.
--- NOTE | 2019-02-11 01:22 | NUR ---
Patient has been resting with eyes closed. Anusol cream not delivered yet/will apply once arrived.
--- NOTE | 2019-02-11 05:00 | NUR ---
Patient awakened for med. Declines hemorroidal cream at this time.
[2019-02-11 05:53] VITALS: BP 101/51; PULSE 51; TEMP 98
--- NOTE | 2019-02-11 10:08 | NUR ---
Patient attending therapy at this time. Reported pain to right knee and given Ultram. Will continue to monitor. Patient denied questions this morning.
--- NOTE | 2019-02-11 15:53 | NUR ---
Reviewed Team Conference notes w/ pt. She stated she understood & agreed w/ her current level of functioning. Informed her that we will re-evaluate next Saturday. Pt had no questions/concerns at this time. Did inquire about calling her significant other but she told SW no at this time.
[2019-02-11 18:00] VITALS: BP 125/49; PULSE 64; TEMP 98.2
--- NOTE | 2019-02-11 19:48 | NUR ---
Patient attended all therapies today. She was a one max assist with transfers to the [facility] this afternoon. Patient did use the call light, but she would get up and her bed alarm or chair alarm would sound for nurses to know that she was getting up on her own before staff had time to arrive to assist her. Staff would run to room and assist patient and then educate her on the need to wait for staff to assist her before attempting to transfer. She did voice understanding. Will continue to educate her. She tolerated diet well this shift. She denied questions at this time. Gave report to night nurse.
--- NOTE | 2019-02-12 03:33 | NUR ---
Patient has been resting with eyes closed on hourly rounds. Respirations with ease.
--- NOTE | 2019-02-12 04:50 | NUR ---
Patient slept until this time. Called for assist but just states "come now". Has urinary urgency and incontinent on way to BSC. Max assist to change. Mod assist to bed and RLE into bed. Denies pain.
[2019-02-12 04:56] VITALS: BP 110/51; PULSE 55; TEMP 97.8
[2019-02-12 14:49] VITALS: BP 104/62; PULSE 74; TEMP 98
--- NOTE | 2019-02-12 15:28 | NUR ---
Patient attended all therapies today. Reported 6/10 pain to right knee this morning and given prn Ultram with good effect. Patient was incontinent of urine this afternoon when working with therapy. Patient is able to communicate that she has to go to the bathroom, but is not able to get to the toilet in time. She is able to pull her pants up and down with staff providing assistance to steady her.
--- NOTE | 2019-02-12 20:00 | NUR ---
PT RESTING IN BED. AT BEDSIDE. C/O RT KNEE PAIN. SEE MAR FOR ULTRAM GIVEN. REFUSED ICE OR HEAT PACK. RT SIDED WEAKNESS. WEAK CORPORATE STATISTICAL FINANCIAL ANALYST AND FOOT PUSH PULL. SPEECH WEAK. ENC TO USE CALL LIGHT WHEN NEEDING UP.
--- NOTE | 2019-02-12 20:51 | NUR ---
Patient has very dry skin and this nurse applied lotion to patient's bilateral legs and arms this afternoon. Patient had a few times where she laughed and smiled during therapies today. She tolerated meals well today. Denied any questions. Reported off to night nurse.
[2019-02-13 06:07] VITALS: BP 100/41; PULSE 58; TEMP 98
--- NOTE | 2019-02-13 08:15 | NUR ---
Patient resting in bed, at the bedside. Alert to verbal commands and name, unable to remember and state name when asked. VSS. Denies pain and discomfort. Patient assisted with medication administration and encouraged to sit straight up when taking anything PO. Patient verbalized an understanding. No further needs expressed from patient. Call light within reach
[2019-02-13 15:22] VITALS: BP 118/44; PULSE 63; TEMP 98.4
--- NOTE | 2019-02-13 17:53 | NUR ---
Patient resting in bed. Had an uneventful day. Worked with therapy and tolerated well. Alert to name and partially confused. VSS. Reported pain in right hip, pain medication given when requested. No further needs expressed from patient. Call light within reach
--- NOTE | 2019-02-14 03:01 | NUR ---
PT AND ATCHING TV. ASSISTED PT MAX 1 TO BSC. VOIDED LG AMT CLEAR SUNITA URINE. INCONT IN VAGINAL PAD/ PULL UPS. PT ASSISTED SOME WITH CHANGING PULL UPS AND WIPING SELF. BACK TO BED. CALL IGHT IN REACH. BED ALARM SET.
[2019-02-14 05:14] VITALS: BP 94/43; PULSE 57; TEMP 98.2
--- NOTE | 2019-02-14 09:12 | NUR ---
Report from ARNOL Grey. Pt c/o pain in rt knee, ultram given for pain per pt ""10. Pt stated last name when asked, could not say month she was born, asked if February or March and answered correctly, asked if she was born on or and she says "first", then asked if she was born in 1959 or 1960, she said "[birth year]" and corrected. Delayed swallow for one pill at a time with thin liquid. Declines hemorrhoid cream at this time. Sitting up in bed, set up for oral cares and warm washcloth, bed alarm on, call lt in reach.
--- NOTE | 2019-02-14 15:59 | NUR ---
Hima visiting, elevated pt's RUE on pillow, ultram for RLE pain. Bed alarm on, call lt in reach.
[2019-02-14 17:10] VITALS: BP 98/45; PULSE 63; TEMP 97.8
--- NOTE | 2019-02-14 19:21 | NUR ---
Report to ARNOL Grey.
--- NOTE | 2019-02-14 21:40 | NUR ---
PT RESTING IN BED. KILN CAR REPAIRER ASSISTED IN CHANGING CLOTHES. PT HAS RT WEAK VOLUNTEER FIREFIGHTER. RT LEG FLACCID. ADMITS TO GOOD SENSATION. TENDS TO LEAN ON RT ELBOW. ENC PILLOW PLACEMENT. AGREED TO SCD'S BILAT. PT C/O RT KNEE PAIN. PILLOW SUPPORT. HAS EXPRESSIVE APHASIA BUT ABLE TO EXPRESS NEEDS. ON SOFA. STAYING THE NIGHT. VERY SUPPORTIVE.
[2019-02-15 06:00] VITALS: BP 100/47; PULSE 76; TEMP 98.3
--- NOTE | 2019-02-15 09:30 | NUR ---
Report from ARNOL Grey. Ultram given per pt request to pain in rt knee, SCDs to BLE, elevated RLE on pillow for comfort, seems to help some. Set up for oral cares. Hima at bedside. Bed alarm on, call lt in reach.
--- NOTE | 2019-02-15 17:23 | NUR ---
Ultram given per request, Hima johnson, pt ate all of the food he brought in a small to-go styrofoam container. Did not drink milkshake brought this afternoon. Enc water. Bed alarm on, call lt in reach.
[2019-02-15 18:35] VITALS: BP 107/52; PULSE 59; TEMP 98
--- NOTE | 2019-02-15 19:14 | NUR ---
Report to ARNOL Grey.
--- NOTE | 2019-02-15 21:00 | NUR ---
PT QUIET TONIGHT. DENIES COMPLAINTS. REFUSED HS INA. AT BEDSIDE. RT SIDED WEAKNESS. RLE FLACCID. BED ALARM SET. CALL LIGHT IN REACH.
--- NOTE | 2019-02-16 00:31 | NUR ---
PIVOT TRANSFER TO BSC WITH WALKER. RT SIDED NEGLECT. VOIDED LG AMT CLEAR YELLOW URINE. REIEWED S/S UTI. DENIED ANY. BACK TO BED. CALL LIGHT IN REACH. BED ALARM SET.
--- NOTE | 2019-02-16 00:33 | NUR ---
SCD'S OFF PER PT REQ.
[2019-02-16 04:16] VITALS: BP 91/40; PULSE 62; TEMP 98
--- NOTE | 2019-02-16 08:48 | NUR ---
Patient working with ST at this time. Patient's just left to go home after ST arrived in patient's room. Patient reported pain 7/10 this morning to right knee and was given prn pain meds with good effect. Will continue to monitor.
--- NOTE | 2019-02-16 10:38 | NUR ---
Patient very frustrated when working with PT. This nurse heard patient yelling down the padgett. This nurse assisted PT and patient was able to calm down a little bit. Patient was asked if she wanted to talk about it, but she said that she would talk to me later about it. Patient continued to work with PT and is currently downstairs in Therapy room on stationary bike. Will continue to monitor.
--- NOTE | 2019-02-16 11:31 | NUR ---
Patient resting in recliner at this time, call light in reach and chair alarm is on. Patient watching TV at this time. Will continue to monitor.
[2019-02-16 16:31] VITALS: BP 111/57; PULSE 57; TEMP 98.2
--- NOTE | 2019-02-16 21:30 | NUR ---
Patient sits up in bed watching TV. Alert. Points at board but unable to state having pain and nurse inquires about pain. Reports right knee pain and tramadol given per request. staying with patient through the night.
--- NOTE | 2019-02-17 02:18 | NUR ---
Patient has been resting in bed with eyes closed.
[2019-02-17 03:48] VITALS: BP 108/61; PULSE 55; TEMP 98.1
--- NOTE | 2019-02-17 10:34 | NUR ---
Attempted to contact pt's significant other, Hima, to schedule a pt/family conference. He was not available so left a message about doing a pt/family conference for 02/18/19 @ 1:45 pm.
--- NOTE | 2019-02-17 10:45 | NUR ---
Patient resting in bed at this time, call light in reach and bed alarm is on. Patient reported that she had a shower this morning. Patient was able to give yes and no resposes whether lotion was applied to her skin. Every so often she is able to say a whole sentence. Patient denied any further needs at this time. She has been using her call light appropriatly.
[2019-02-17 16:13] VITALS: BP 103/54; PULSE 61; TEMP 98
--- NOTE | 2019-02-17 21:30 | NUR ---
Patient rests with eyes closed and awakened for meds. Denies needs. Returns to resting with eyes closed. staying through the night.
--- NOTE | 2019-02-18 03:00 | NUR ---
Patient has been resting quietly. Respirations with ease.
[2019-02-18 05:33] VITALS: BP 105/40; PULSE 60; TEMP 98.3
--- NOTE | 2019-02-18 05:51 | NUR ---
Patient states "ya" to resting well this NOC. Up to BSC heavy/mod-max assist to BSC. Has difficulty with sit to stand and pulling pants up. Staff changes attends due to small incontinency of urine. Has xlg bm and voids and back to bed. Takes more time but lifts RLE into bed.
--- NOTE | 2019-02-18 07:34 | NUR ---
Report from ARNOL Leal. Pt ate breakfast sitting up in bed, Hima johnson, set up for oral cares, ultram for RLE pain per pt request, used "Faces" scale for pt to point to pain level. Bed alarm on, call lt in reach. Declines SCDs.
--- NOTE | 2019-02-18 13:45 | NUR ---
A Family Conference was conducted with pt & her significant other, Hima. Also present was PT, OT, ST, nurs, & Food And Beverage Coordinator/SW. Food And Beverage Coordinator/SW started by explaining the purpose of the meeting. The therapists explained how pt has been functioning & has made good progress. Informed them that team would like to re-evaluate next Saturday, which they were fine with. Significant other asked questions which team answered. Pt & significant other are pleased with progress & care pt is receiving.
--- NOTE | 2019-02-18 13:49 | NUR ---
Attended Family Meeting with pt and Hima, pt in bed with head elevated, call lt in reach, alarm on. Asked for Ultram too early, given now. Answered questions.
[2019-02-18 18:31] VITALS: BP 94/47; PULSE 65; TEMP 98
--- NOTE | 2019-02-18 19:00 | NUR ---
BEDSIDE SHIFT REPORT WITH DARREN HOUSTON. PT SITTING UP IN BED. SCD'S JUST ON LT LEG PER REQUEST. STAYING THE NIGHT ON SOFA. VERY SUPPORTIVE. call light in reach. bed alarm set.
--- NOTE | 2019-02-18 19:26 | NUR ---
Matilda in room at shift change, pt's SCD to LLE, declines to RLE, RLE elevated on pillow, RUE on pillow, turned bed alarm on, call lt in reach, Hima visiting. Pt rates pain at 2/10 at shift change.
[2019-02-19 05:28] VITALS: BP 91/45; PULSE 53; TEMP 98.1
--- NOTE | 2019-02-19 08:12 | NUR ---
Bedside report from ARNOL Grey. Hima johnson, turned bed alarm on, ultram for pain prior to therapies for r knee pain and r arm pain with activity. Set up oral cares on tray and warm washcloth. Call lt in reach.
--- NOTE | 2019-02-19 13:17 | NUR ---
Pt to chair for lunch, aware that it was too soon for ultram, cued pt to call after therapy if she needed one, rated pain 4/10. Declined elevating BLE. Agreeable to placing RUE on pillow. Yellow gripper socks in place, alarm on, call lt in reach. Making some small gains with speaking.
[2019-02-19 18:28] VITALS: BP 100/51; PULSE 62; TEMP 97.9
--- NOTE | 2019-02-19 19:21 | NUR ---
Bedside report to ARNOL Grey. Pt asked to toilet. Gripper socks donned.
--- NOTE | 2019-02-19 21:00 | NUR ---
PT RESTING IN BED. RT SIDE WEAKNESS. LT LEG FLACCID. HAS SOME AUDIOVISUAL TECHNICIAN TO RT HAND. EXPRESSIVE APHASIA NOTED BUT IMPROVED. C/O RT LEG PAIN. DENIES RT ARM PAIN. SCD TO LT LEG. SEE MAR FOR PAIN MED GIVEN. CALL LIGHT I REACH. BED ALARM SET.
[2019-02-20 06:00] VITALS: BP 96/49; PULSE 64; TEMP 98.2
--- NOTE | 2019-02-20 08:44 | NUR ---
Patient working with ST at this time. Patient reported 4-6/10 to right knee and given prn tramadol. Will continue to monitor.
--- NOTE | 2019-02-20 09:44 | NUR ---
Visited w/ pt. She states she is doing well & feels like she is continuing to make progress. She doesn't have any questions/concerns at this time.
--- NOTE | 2019-02-20 11:58 | NUR ---
Patient resting in bed at this time following morning therapies. She is eating her lunch. Bed alarm is set and call light is in reach. Will continue to monitor.
[2019-02-20 17:07] VITALS: BP 103/45; PULSE 67; TEMP 98.1
--- NOTE | 2019-02-20 21:30 | NUR ---
Woke patient for HS meds and reviewed and given. Denies needs at this time and returns to resting with eyes closed. staying with patient through the night.
--- NOTE | 2019-02-20 23:00 | NUR ---
Patient has been resting in bed with eyes closed. Respirations with ease.
[2019-02-21 02:55] VITALS: BP 98/49; PULSE 61; TEMP 98
--- NOTE | 2019-02-21 06:22 | NUR ---
patient reports 6/10 right knee pain and tramadol given.
--- NOTE | 2019-02-21 08:22 | NUR ---
PT RESTING IN BED. MEDS GIVEN. ARRIVES TO ROOM. PT HAS GONE TO BR WITH OTHER STAFF. PT STATES SHE DID NOT EAT BREAKFAST. PT COMPLIANT WITH REQUESTS. ALARMS IN PLACE ON BED.
--- NOTE | 2019-02-21 11:15 | NUR ---
PT IS RESTING WITH HER EYES CLOSED. PT WAS OBSERVED AMBULATING WITH PT STAFF, SHE WAS USING THE WALKER, HER GAIT WAS SLOW AND SHE DRUG HER RIGHT LEG. SHE WAS STANDING UP STRAIGHT AND LOOKING MOSTLY FORWARD.
[2019-02-21 17:16] VITALS: BP 101/44; PULSE 65; TEMP 98.6
--- NOTE | 2019-02-21 17:24 | NUR ---
PT REFUSED BOTH BREAKFAST AND LUNCK. SHE ATE SOME OF THE OXTAIL SOUP THAT FAMILY BROUGHT IN AND HER FRUIT ON THE TRAY. PT STATES HER PAIN IS OK. FAMILY IN ROOM
[2019-02-22 06:00] VITALS: BP 99/48; PULSE 59; TEMP 98.1
--- NOTE | 2019-02-22 09:26 | NUR ---
0835 PT HAD ANOTHER BLOODY STOOL, IT WAS GRAINY AND MIXTURE OF BRIGHT AND DK RED BLOOD. PT WAS TAKEN DOWN TO ENDO BY STAFF ON THE CART. PT HAD NS ON STRAIGHT TUBING HANGING PER REQUEST.
[2019-02-22 16:33] VITALS: BP 89/48; PULSE 67; TEMP 98
--- NOTE | 2019-02-22 18:14 | NUR ---
PT ATE 20 %MEAL. HAS BEEN DRINKING FLUIDS- WATER WELL ALL DAY. PT REFUSED THE BR. SCD'D PLACED ON PT. SETTLED FOR THE NIGHT. FRIEND IN ROOM.
[2019-02-23 04:07] VITALS: BP 92/46; PULSE 54; TEMP 97.7
--- NOTE | 2019-02-23 06:28 | NUR ---
PT IN BED. PT DENIED NEED FOR PAIN MEDICATION THIS MORNING. UP TO COMMODE WITH ASSIST OF 1.
--- NOTE | 2019-02-23 08:00 | NUR ---
PATIENT IS SITTING UP IN THE BED WITH HER BREAKFAST TRAY THIS MORNING. PATIENT IS A&OX4. BRADYCARDIA NOTED, VSS. BOWEL SOUNDS ACTIVE ALL FOUR QUADRANTS. PATIENT TOLERATING DIET WITHOUT ANY COMPLAINTS OF N/V. POSITIVE PEDAL PULSES EQUAL BILATERALLY. RIGHT SIDED WEAKNESS NOTED. DIMINISHED GRASP TO THE RIGHT HAND. PATIENT DENIES PAIN AT THIS TIME. PATIENT REQUESTED A SUPPOSITORY THIS MORNING. FRIEND AT THE BEDSIDE. CALL LIGHT WITHIN REACH. PATIENT DENIES ANY NEEDS AT THIS TIME.
--- NOTE | 2019-02-23 11:34 | NUR ---
JULIUS met with the patient to introduce oneself. The patient was watching TV. She states that she is doing okay, resting inbetween therapy. The patient had no other questions or concerns for SW at this time. SW to continue to follow.
[2019-02-23 17:43] VITALS: BP 109/59; PULSE 64; TEMP 98
--- NOTE | 2019-02-23 20:50 | NUR ---
Patient resting with eyes closed. HS meds reviewed and given. States will drink ensure later. staying with patient through the night.
--- NOTE | 2019-02-24 02:32 | NUR ---
Patient has been resting quietly in bed. Respirations with ease.
[2019-02-24 03:40] VITALS: BP 105/54; PULSE 56; TEMP 98.2
--- NOTE | 2019-02-24 06:04 | NUR ---
reports right knee pain 4/10 and tramadol given per request.
--- NOTE | 2019-02-24 07:50 | NUR ---
Patient in bed resting. Spouse at bedside. Patient states pain 2/10 using faces scale. Eating independently with set up assistance only. Denies further needs at this time.
--- NOTE | 2019-02-24 14:42 | NUR ---
Patient called out to nurses station, requests pain meds for pain 8/10 to right lower extremity. x1 assist to restroom.
[2019-02-24 17:56] VITALS: BP 108/52; PULSE 64; TEMP 98.2
--- NOTE | 2019-02-24 18:26 | NUR ---
Patient has done well throughout the day. Assistance with setting up trays, eats independently. Denies pain at this time. Denies further needs at this time. Will report off to shift superintendent.
--- NOTE | 2019-02-24 21:45 | NUR ---
Patient resting with eyes closed and woke up for meds. Denies needs at this time.
--- NOTE | 2019-02-25 02:34 | NUR ---
Patient rests with eyes closed. Respirations with ease.
[2019-02-25 05:27] VITALS: BP 94/47; PULSE 66; TEMP 98.1
--- NOTE | 2019-02-25 05:37 | NUR ---
REPORTS PAIN 10/10 ON PAIN SCALE TO RIGHT KNEE AND TRAMADOL GIVEN.
--- NOTE | 2019-02-25 07:34 | NUR ---
Pt's bed alarm going off, Hima was standing bedside and states pt was going to get her pants on, reminded them that she is not to get up without one of us helping, was assisted by BUSINESS AFFAIRS MANAGER and returned to bed, bed alarm turned on. Call lt in reach, pt ate 100% and agreeable to daniel shake. Pain 07/23
--- NOTE | 2019-02-25 13:38 | NUR ---
Pt finished lunch, bedresting with TV on. Bed alarm was on prior to pt going with PT. Rates pain using FACES pain scale. States last name, prompted for , self-corrects.
--- NOTE | 2019-02-25 15:14 | NUR ---
Pt given PRN tramadol for pain to R knee rated 6/10. Denies other needs at this time. Call light within reach.
--- NOTE | 2019-02-25 16:43 | NUR ---
JULIUS met with the patient and the patient's life partner, Hima, to present and review the IPR Team Conference Note. JULIUS discussed the teams anticipated discharge date for Saturday, 03/06, and pending discharge services. JULIUS also discussed needing a front wheeled walker and tub transfer bench. The patient and Hima were in agreeance this plan. JULIUS informed Hima on where to get a tub transfer bench. JULIUS presented and explained the Patient Choice Form for DME. The patient and Hima chose [facility]. Patient Choice Form signed by Hima and they were provided a copy. Training with Hima and the patient were scheduled for this Saturday and a home assessment was scheduled for next Saturday. JULIUS informed IPR Director. JULIUS will need to contact and fax the patient's walker order to [facility]. JULIUS to continue to follow.
--- NOTE | 2019-02-25 17:01 | NUR ---
Hima johnson, notified JULIUS Walters that he arrived so she could discuss discharge plan. Pt in bed with call lt in reach, applied SCD to LLE and turned bed alarm on.
[2019-02-25 17:56] VITALS: BP 109/43; PULSE 66; TEMP 98
--- NOTE | 2019-02-25 19:25 | NUR ---
Bedside shift report received from Noemi AMBROSE. Patient rests in bed. Reports pain doing ok. Denies needs. staying with patient through the night.
--- NOTE | 2019-02-26 02:18 | NUR ---
Patient has been resting quietly in bed. Respirations with ease.
--- NOTE | 2019-02-26 05:02 | NUR ---
Patient has been resting with eyes closed on rounds since pain med given earlier.
[2019-02-26 05:11] VITALS: BP 102/55; PULSE 55; TEMP 97.7
--- NOTE | 2019-02-26 08:00 | NUR ---
UPON ENTRY TO THE ROOM THE PATIENT IS SITTING UP IN THE CHAIR. PATIENT IS A&OX4. BRADYCARDIA NOTED, VSS. BOWEL SOUNDS ACTIVE ALL FOUR QUADRANTS. PATIENT TOLERATING DIET WITHOUT ANY COMPLAINTS OF N/V. POSITIVE PEDAL PULSES EQUAL BILATERALLY. HAND MILLWRIGHT UNEQUAL. RIGHT-SIDED WEAKENESS NOTED. PATIENT GIVEN PRN DOSE OF TRAMADOL PRIOR TO WORKING WITH PHYSICAL THERAPY FOR RIGHT THIGH PAIN. PRESENT AT THE BEDSIDE. CALL LIGHT WITHIN REACH. PATIENT DENIES ANY OTHER NEEDS AT THIS TIME.
[2019-02-26 15:53] VITALS: BP 115/40; PULSE 58; TEMP 98
--- NOTE | 2019-02-26 17:21 | NUR ---
VERBAL CUES GIVEN TO PATIENT FOR HAND PLACEMENT ON WALKER, KEEPING LEGS BETWEEN THE WALKER AND KEEPING THE WALKER CLOSE TO THE BODY WHEN AMBULATING. PATIENT ABLE TO PULL DOWN PANTS, WIPE AND PULL PANTS UP INDEPENENTLY.
--- NOTE | 2019-02-26 19:16 | NUR ---
REPORT GIVEN TO ARNOL KOVACS.
--- NOTE | 2019-02-26 21:00 | NUR ---
PT RESTING IN BED. HERE - SPENDING THE NIGHT ON SOFA. VERY SUPPORTIVE. RT CLIN ASST GETTING STRONGER. RLE FLACCID WITH GOOD SENSATION. C/O RT KNEE HURTS. SEE MAR FOR ULTRAM GIVEN. REFUSED HS SNACK AND SCD'S. CALL LIGHT IN REACH. BED ALARM SET.
[2019-02-27 04:02] VITALS: BP 94/49; PULSE 54; TEMP 98.1
--- NOTE | 2019-02-27 11:26 | NUR ---
Report from ARNOL Grey. Pt ate breakfast in bed, Hima here for family training with therapy. Pt took pills one at a time with water through straw. Points to FACES pain scale 2/10. Pt's speech slowly progressing. Declined ice in water, cup full.
--- NOTE | 2019-02-27 11:56 | NUR ---
Pt bedresting with eyes closed. Turned bed alarm on. Call lt in reach.
[2019-02-27 15:20] VITALS: BP 140/56; PULSE 73; TEMP 98.2
--- NOTE | 2019-02-27 15:28 | NUR ---
Ultram for pain, BP elevated, per BHARATHI Lucero pt's RLE was repositioned and ROM done. SCD to LLE only. Turned bed alarm on, call lt in reach.
--- NOTE | 2019-02-27 16:03 | NUR ---
JULIUS followed up with the patient. The patient was resting and watching Judge Kaur. She states that she is doing okay and that training with Hima went okay this morning. She states that she plans to rest this weekend. The patient had no questions or concerns for JULIUS at this time. SW to continue to follow.
--- NOTE | 2019-02-27 17:12 | NUR ---
Hima johnson, pt set up in bed for supper.
--- NOTE | 2019-02-27 19:20 | NUR ---
Pt resting in bed. Family at bedside. No distress noted. Pt denies pain at this time. Respirations even and unlabored. Lungs clear. Abdomen soft, nontender. BS+. Heart rhythm regular. VSS. Pt has R sided weakness. R side icebox worker is weak and pt is unable to flex R foot on command. Pt is alert but has some confusion at times. Bed alarm set for safety.
--- NOTE | 2019-02-27 20:17 | NUR ---
Bedside report to ARNOL Cooley. Pt has RLE elevated on pillow with warm pack. Per Omar PT, Hima may transfer pt in room, reported this to ARNOL Cooley. Hima in room visiting. Provided pt vanilla shake after supper. Bed alarm turned on, call lt in reach.
--- NOTE | 2019-02-27 21:02 | NUR ---
Pt reports increased pain 4/10 on right side- aching. PRN pain medication given, as well as HS scheduled medications. Pt swallows pills without difficulty. Pt is able to state her name but cannot identify her date of .
--- NOTE | 2019-02-27 23:20 | NUR ---
Pt up to BSC by pivot transfer. Well tolerated. No needs noted.
[2019-02-28 06:00] VITALS: BP 108/52; PULSE 56; TEMP 97.9
--- NOTE | 2019-02-28 09:04 | NUR ---
Bedside report from ARNOL Cooley with ARNOL Cedillo orientee. Hima visiting, departed after breakfast. Turned pt's bed alarm on, call lt in reach. Ultram given per request for RLE pain. Provided fresh ice water, declined shake at this time. Informed pt of group therapy at 1015.
--- NOTE | 2019-02-28 11:32 | NUR ---
REPORT RECEIVED BY CLERICAL MANAGER NURSE. PATIENT TRANSFERS WITH X1 MAX ASSIST WITH GAIT BELT WITH PIVOT TRANSFER OR GAIT BELT/WALKER WITH PATIENT ASSISTING WITH TRANSFERS WITH LEFT FEET PLACEMENT/MOVEMENT. CALL LIGHT/WATER CUP WITHIN REACH. WAITS FOR STAFF TO ASSIST WITH BEDSIDE COMMODE TRANSFERS. SPOUSE, EARLIER WAS PRESENT IN PATIENT'S ROOM AT START OF MORNING CARE BUT LEAVES WITH PLANS TO RETURN IN AFTER TO SEE PATIENT. PATIENT RESTING IN BED WATCHING TV.
--- NOTE | 2019-02-28 11:45 | NUR ---
Agree with Nguyen's assessment.
--- NOTE | 2019-02-28 14:00 | NUR ---
PATIENT TRANSFERS WITH X1 ASST WITH GAIT BELT WITH PIVOT TO BEDSIDE COMMODE. CURRENTLY RESTING IN BED WITH NO ADDITIONAL CONCERNS/QUESTIONS, REQUESTED/GIVEN PAIN MEDS, SEE eMAR. CALL LIGHT/WATER CUP WITHIN PATIENT'S REACH. BED IN LOW BED POSITION WITH BED ALARMS ENGAGED.
[2019-02-28 17:30] VITALS: BP 108/55; PULSE 69; TEMP 98.5
--- NOTE | 2019-02-28 19:00 | NUR ---
REPORT GIVEN TO ASSEMBLY LINE INSPECTOR NURSE WITH CARE RESUMED
--- NOTE | 2019-02-28 20:55 | NUR ---
Upon assessment patient is resting in bed, denies nausea but reports pain. Using the faces pain scale patient reports her pain at an 8. PRN Ultram given along with HS medications. Assisted patient in repositioning. Bed alarm activated and call tatum within reach of left hand. No other needs reported at this time.
[2019-03-01 05:28] VITALS: BP 92/48; PULSE 58; TEMP 98.1
--- NOTE | 2019-03-01 07:27 | NUR ---
Patient report given to ARNOL Franklin at bedside. Patient still sleeping at this time, no needs observed.
--- NOTE | 2019-03-01 07:36 | NUR ---
Report from ARNOL Forrester. Pt asleep in bed prior to breakfast. Bed alarm on. Hima was not in room this morning.
--- NOTE | 2019-03-01 10:05 | NUR ---
Ultram given per pt request, lotion applied to lower legs for dry skin, declined offer to position RLE on pillow, air mattress in place. Pt declined milkshake this morning. Call lt in reach, bed alarm on. Enc pt to sit in recliner after next time she toilets in order to change linens. Pt agreeable.
--- NOTE | 2019-03-01 16:37 | NUR ---
Hima here visiting.
[2019-03-01 17:03] VITALS: BP 101/55; PULSE 74; TEMP 97.4
--- NOTE | 2019-03-01 19:16 | NUR ---
Report to ARNOL Grey. Pt in bed with alarm on, watching TV, Hima johnson.
[2019-03-02 03:16] VITALS: BP 98/57; PULSE 57; TEMP 97.8
--- NOTE | 2019-03-02 03:16 | NUR ---
PT HAS URINARY URGENCY. ASSISTED TO BR. PT MAKING UNSAFE JUDGEMENTS. ENC TO SLOW DOWN. INCONT IN PANTS. CHANGED CLOTHING WITH MAX ASSIST. BACK TO BED. RT LEG REMAINS FLACCID. PT C/O RT KNEE PAINFUL. SEE MAR FOR ULTRAM GIVEN. CALL LIGHT IN REACH. BED ALARM SET. ON SOFA SLEEPING.
--- NOTE | 2019-03-02 04:52 | NUR ---
PT RESTING. NO EVIDENCE OF PAIN.
--- NOTE | 2019-03-02 12:39 | NUR ---
Patient resting in bed, call light in reach and alarm is set. Patient in much pain this morning due to constipation. Given prn suppository, and was able to expell small amounts of stool with great pain. She has hemmoroids and was given anusol to help with pain. Patient requested an enema and was not able to tolerate so all of it was not given. Patient to weak to try to have another BM at this time. Refused all therapies this morning.
--- NOTE | 2019-03-02 16:04 | NUR ---
JULIUS met with the patient to follow up after the weekend. The patient was resting and states that she is doing okay. The patient is to have a home assessment tomorrow with her life partner, Hima. SW to continue to follow.
[2019-03-02 18:09] VITALS: BP 101/56; PULSE 86; TEMP 98.5
--- NOTE | 2019-03-02 18:12 | NUR ---
Patient resting in bed awaiting for one of her friends to arrive to bring her some supper. Patient refused her evening meal from the hospital. Patient reporting that she is still having some rectal pain from the extra extra large bowel movement that she had this afternoon.
--- NOTE | 2019-03-02 21:00 | NUR ---
PT RESTING IN BED. SLEEPING ON SOFAS. PT RELATES RT KNEE HURTS. SEE MAR. NO EDEMA NOTED. PT ABLE TO TAKE PT TO TOILET. ENC TO ASK FOR ASSIST ANYTRIME HE NEEDS IT. CALL LIGHT IN REACH. BED ALARM SET.
[2019-03-03 05:47] VITALS: BP 97/48; PULSE 72; TEMP 98.8
--- NOTE | 2019-03-03 06:15 | NUR ---
PT REPORTED A GOOD NIGHT. SUCCESSFULLY ASSISTED PT TO BSC TO VOID. NO SAFETY ISSUE.S REPORTS URINE DARK COLOR BUT CLEAR. ENC PT TO DRINK MORE.
--- NOTE | 2019-03-03 07:23 | NUR ---
Bedside report from ARNOL Grey. Hima visiting in room, ming RN reports he has transferred pt (PT gave permission after training). Call lt in reach, set up assist for breakfast. Pt rates pain 7/10, will provide ultram prior to pt leaving for Home Eval.
--- NOTE | 2019-03-03 08:45 | NUR ---
Pt left with OT for Home eval.
--- NOTE | 2019-03-03 10:23 | NUR ---
Pt returned from Home Eval with SCHUYLER Walters, who states pt will be switched to a quad cane d/t home environment.
--- NOTE | 2019-03-03 12:16 | NUR ---
Pt transferred herself from chair to bed without help and set off alarm. Turned bed alarm on, call lt in reach, pt declines lunch, kitchen said they are making grilled cheese. Pt finished ensure, nurse made another shake.
--- NOTE | 2019-03-03 14:28 | NUR ---
Pt has stated that her rt arm pain is "something in my arm" and nurse tries to clarify that it's a muscle cramp, pt pulls on rt arm and points to forearm near anticubital area, palpable soft mass SQ. Pt called for two ultrams- not ordered- provided with tylenol and ultram. Bed alarm on, call lt in reach.
[2019-03-03 15:54] VITALS: BP 102/54; PULSE 70; TEMP 97.7
--- NOTE | 2019-03-03 18:11 | NUR ---
Hima at bedside, able to asst w/ cares, pt agreeable to daniel bello, ate 50% supper.
--- NOTE | 2019-03-03 20:21 | NUR ---
Bedside report to ARNOL Goldman. Pt in bed, call lt in reach, air mattress in reach, Hima johnson.
--- NOTE | 2019-03-03 21:15 | NUR ---
Shift assessment complete. Patient ambulated to BR with gait belt/cane and assist x1. Gait very unsteady. Unable to rate pain, but able to answer "yes" when asked if her pain is really bad. Prn pain medication given. Denies further needs at this time. Will continue to monitor.
[2019-03-04 05:10] VITALS: BP 93/45; PULSE 67; TEMP 98.2
--- NOTE | 2019-03-04 16:35 | NUR ---
JULIUS met with the patient to present and discuss the IPR Team Conference Note and to review the team's recommendation of a discharge for this Saturday, 03/06, with outpatient PT/OT/ST. The patient was in agreeance to this and to receive the outpatient PT/OT/ST at [facility]. SW also discussed the teams recommendations of a transport chair and a toliet riser with handles. They are not recommending a FWW anymore. The patient preferred for JULIUS to speak to her life partner, Hima, about this. JULIUS attempted to contact Hima. SW left him a voicemail and left him a note in the patient's room to contact JULIUS. JULIUS will need to follow up with Hima and will continue to follow.
--- NOTE | 2019-03-04 17:44 | NUR ---
Patient resting in bed at this time eating her supper. Patient attended all therapies today. Reported knee pain and was given prn ultram this morning with good effect. Her call light is in reach and bed alarm is on. Will continue to monitor.
[2019-03-04 18:23] VITALS: BP 104/44; PULSE 77; TEMP 97.7
--- NOTE | 2019-03-04 19:45 | NUR ---
PT RESTING IN BED. C/O RT KNEE PAIN. REQUEST PAIN MED. STAYING WITH PT. APPROVED TO TRANSFER AND CARE FOR PT. ENC TO CALL FOR ASSIST ANY TIME. SEE MAR FOR PAIN GIVEN. REFUSED SCD'S AND ELEVATION RLE. CALL LIGHT IN REACH.
--- NOTE | 2019-03-04 20:00 | NUR ---
Patient attended all therapies today. She was given prn Tramadol with good effect this shift. Following therpies she reported having 2/10 pain. This nurse received report about a hard not to patient's right arm. This was communicated to Dr. Fields. No new orders at this time. Patient able to make her needs known, but does have difficulty with finding the right words at times.
--- NOTE | 2019-03-04 20:04 | NUR ---
Patient's brought in a new cane for patient to try. It is called a hurri-cane and is pink in color.
[2019-03-05 05:50] VITALS: BP 100/49; PULSE 62; TEMP 98.3
--- NOTE | 2019-03-05 14:49 | NUR ---
JULIUS contacted the patient's life partner, Hima, to review the discharge plan for tomorrow, 03/05. Hima was in agreeance with the discharge tomorrow with outpatient PT/OT/ST and to receive the therapy at [facility] on [place]. JULIUS secured the patient appointments at [facility] on [address]. PT: 03/09 at 0930, OT: 03/09 at 1030, and ST: 03/19 at 1330. JULIUS notified the patient's RN of appointments. JULIUS also discussed the recommended equipment: toliet riser with handles and a transport chair/wheelchair. The patient reports that he has the shower head, tub transfer bench, and cane already for the patient. He states that he would be interested in the toliet riser and transport chair, if donated. [facility] did not have that equipment. JULIUS attempted to contact [facility] and left a voicemail. [facility] does have a transport chair. JULIUS attempted to contact Hima back to inform. JULIUS left him a voicemail. Hima had informed JULIUS that he will be at the hospital early tomorrow morning. SW to follow up with the patient and Hima tomorrow morning.
[2019-03-05 15:27] VITALS: BP 108/50; PULSE 70; TEMP 97.8
[2019-03-05] MEDS ORDERED: TYLENOL 325MG325 MG PO (17:40)
[2019-03-05] MEDS ORDERED: ANUSOL HC CREAM30 GM TOP (17:42)
[2019-03-05] MEDS ORDERED: ULTRAM 50MG TAB50 MG PO (17:43)
--- NOTE | 2019-03-05 18:40 | NUR ---
Patient resting in bed with by her side. She has bed alarm on and call light in reach. Patient did eat all three meals today, but at lunch requested something else because she didn't like what they were serving.
--- NOTE | 2019-03-05 20:53 | NUR ---
Patient attended all therapies today. JULIUS Walters spoke with patient's this evening to finalize details of discharge tomorrow. Reviewed meds with patient's this evening so that he could purchase a weekly pill organizer. Patient's put together new walker this evening and it is in patient's room. Patient wanted to have PT/OT/ST provide suggestions on exercises and diagrams of exercises for her to work on when she is at home.This was communicated to night nurse to pass along to therapy tomorrow. Patient received prn pain meds with good effect today. Reported off to night nurse.
--- NOTE | 2019-03-05 21:00 | NUR ---
PT RESTING IN BED. RT SIDED WEAKNESS, RLE FLACCID. SPEECH DIFFICULT TO UNDERSTAND AT TIMES. PT REPORTS RT KNEE PAINFUL. SEE MAR FOR PAIN MED GIVEN. STAYING THE NIGHT. APPROVE TO TRANSFER PT TO BSC. HAD SOME QUESTIONS RE DISCHARGE TOMORROW. ANSWERED. PT RELATES EXCITED TO GO HOME.
[2019-03-06 04:57] VITALS: BP 99/45; PULSE 59; TEMP 97.6
--- NOTE | 2019-03-06 08:02 | NUR ---
REPORT RECEIVED FROM BOOM STICK WORKER NURSE. PATIENT RESTING IN BED WITH NO FURTHER CONCERNS OR COMPLAINTS. OUT OF ROOM CURRENTLY. CALL LIGHT/WATER WITH PATIENT'S REACH.
--- NOTE | 2019-03-06 08:41 | NUR ---
PATIENT GIVEN PAIN MEDS REQUESTED, SPOUSE, KAY, VOICED CONCERN REGARDING PATIENT COMPLAINING OF RIGHT HAND SWELLING, OBSERVED SMALL TO MEDIUM AMOUNT OF SWELLING TO LATERAL HAND AROUND BASE OF RIGHT THUMB BUT NOT TO MIDLINE RIGHT HAND, SWELLING SOFT, ENCOURAGED PATIENT TO KEEP AFFECTED RIGHT UPPER EXTREMITY ELEVATED AND EXERCISES RIGHT HAND DIGIT/PERFORMING RIGHT HAND PROM BURN OFF OPERATOR EXERCISES MUCH POSSIBLE.
--- NOTE | 2019-03-06 09:13 | NUR ---
JULIUS met with the patient and the patient's life partner, Hima, to review the discharge plan for today. The patient and Hima were both in agreeance to the discharge with outpatient PT/OT/ST at [facility] on [place]. JULIUS provided Hima with the address and the directions to get there. JULIUS also provided Hima with the contact information and direction to [facility] for the transport chair. The patient reports that he also purchased a rolaider for the patient. The patient and Hima had no other questions or concerns for JULIUS. The patient is to discharge today, 03/06, back home with her life partner and outpatient PT/OT/ST at [facility] on [place]. JULIUS contacted and faxed the patient's orders to [facility] [place]. No additional needs at this time.
--- NOTE | 2019-03-06 14:20 | NUR ---
Discharge QIM scores were reviewed by the team. Code of 6 chosen for oral hygiene was determined by team discussion to be the most usual performance for this patient during the assessment period. Code of 4 chosen for toilet hygiene was determined by team discussion to be the most usual performance for this patient during the assessment period. Code of 4 chosen for toilet transfers was determined by team discussion to be the most usual performance for this patient during the assessment period.--Rubia Infante, PD
--- NOTE | 2019-03-06 14:50 | NUR ---
PATIENT HEALTH SUMMARY, DISCHARGE SUMMARY, AND HOME MEDS PRINTED AND REVIEWED WITH PATIENT AND SPOUSE, CASE. STRESSED IMPORTANCE OF FOLLOW UP APPOINTMENTS, FOR PATIENT TO BE UP ONLY WITH HELP, DRINK LOTS OF FLUIDS TO KEEP BLOOD PRESSURE UP/RECORD BP READINGS TO BRING TO FOLLOW UP APPTS. REVIEWED MEDICATIONS, PROVIDED PRINTED PRESCRIPTION FOR ULTRAM. BELONGINGS GATHERED BY SPOUSE INCLUDING CELL PHONE AND DR LA QUAD CANE. PATIENT TRANSPORTED VIA WHEELCHAIR BY [facility] AND [facility] FOR RIDE HOME. PATIENT AND SPOUSE, CASE, DENIED QUESTIONS.
[2019-03-06] MEDS ORDERED: FOLIC ACID 11 MG/TA1 PO (14:51)
[2019-03-06] MEDS ORDERED: ASPIRIN 81M81 MG/TA2 PO (14:51)
[2019-03-06] MEDS ORDERED: LIPITOR 40MG TA40 MG PO (14:51)
[2019-03-06] MEDS ORDERED: MIRALAX510G PO (14:51)
[2019-03-06] MEDS ORDERED: ANUSOL-HC SUPPO25 MG RC (14:51)
[2019-03-06] MEDS ORDERED: COLACE 100100 MG/CAP PO (14:51)
[2019-03-06] MEDS ORDERED: TYLENOL 325MG325 MG PO (14:51)
[2019-03-06] MEDS ORDERED: SENOKOT S 50 MG1 TAB PO (14:54)
== END 2019-03-06 13:30 | disposition home or self-care (01) | DRG 56 ==
PROVIDERS: ADMIT Internal Medicine
DX: I69.351 Hemiplegia and hemiparesis following cerebral infarction affecting right dominant side (principal); K85.90 Acute pancreatitis without necrosis or infection, unspecified; I10 Essential (primary) hypertension; F19.10 Other psychoactive substance abuse, uncomplicated; I69.320 Aphasia following cerebral infarction; I69.322 Dysarthria following cerebral infarction; F10.20 Alcohol dependence, uncomplicated; M17.11 Unilateral primary osteoarthritis, right knee; E83.52 Hypercalcemia; K59.00 Constipation, unspecified; R13.10 Dysphagia, unspecified; I69.291 Dysphagia following other nontraumatic intracranial hemorrhage; Z79.82 Long term (current) use of aspirin; Z90.710 Acquired absence of both cervix and uterus; Z88.0 Allergy status to penicillin
CPT/HCPCS: 99222-AI; 99231-AI; 99232-AI; 99239; A9284; J1644

== ENCOUNTER 2020-01-27 15:45 | Outpatient (RCR) | payer MEDICAID ==
[~2020-01-27 15:45] MED LIST changes: +ANUSOL HC CREAM30 GM TOP; +ANUSOL-HC SUPPO25 MG RC; +ASPIRIN 81M81 MG/TA2 PO; +COLACE 100100 MG/CAP PO; +FOLIC ACID 11 MG/TA1 PO; +HEPARIN SOD5000 U/ML SQ; +LIPITOR 40MG TA40 MG PO; +MIRALAX510G PO; +NATURE'S BLEND100 M2 PO; +SENOKOT S 50 MG1 TAB PO; +TYLENOL 325MG325 MG PO
== END 2020-01-31 | disposition home or self-care (01) ==
LOC: MKS.ESL.OT → EDBD 15:45 → MKS.ESL.OT 15:45
DX: I63.512 Cerebral infarction due to unspecified occlusion or stenosis of left middle cerebral artery (principal)

== ENCOUNTER 2020-04-13 10:30 | Outpatient (RCR) | payer MEDICAID | END 2020-04-18 | disposition home or self-care (01) | LOC: MKS.ESL.PT | DX: K85.90 Acute pancreatitis without necrosis or infection, unspecified (principal) ==

== ENCOUNTER → 2020-05-18 | Outpatient (CLI) | payer MEDICAID | LOC: COL.VAS 13:54 | DX: Z13.6 Encounter for screening for cardiovascular disorders (principal); M79.604 Pain in right leg ==

== ENCOUNTER 2020-05-25 11:15 | Outpatient (RCR) | payer MEDICAID | END 2020-07-19 | disposition home or self-care (01) | LOC: MKS.ESL.OT | DX: I69.359 Hemiplegia and hemiparesis following cerebral infarction affecting unspecified side (principal) ==

== ENCOUNTER 2021-06-01 16:07 | Emergency (ER) | payer MEDICAID ==
[~2021-06-01] VITALS: Ht 177.8 cm; Wt 72.7 kg
[2021-06-01 16:09] VITALS: TEMP 98.3
[2021-06-01 16:34] LABS: BASO # 0.1 K/mm3 (0.0-0.2); BASO % 1.2 % (0.0-2.0); EOS # 0.2 K/mm3 (0.0-0.7); GRAN # 2.4 K/mm3 (1.4-6.5); GRAN % 39.9 % (42.2-75.2); HEMOGLOBIN 13.3 g/dl (12.5-16.0); LYMPH # 2.9 K/mm3 (1.2-3.4); LYMPH % 47.9 % (20.0-51.0); MEAN CELL VOLUME 78 fl (80.0-100.0); MEAN CORPUSCULAR HEMOGLOBIN 28 pg (27-31); MEAN CORPUSCULAR HGB CONC 36 g/dl (33.0-37.0); MEAN PLATELET VOLUME 10.7 fl (7.4-10.4); MONO # 0.5 K/mm3 (0.1-0.6); MONO % 7.8 % (1.7-9.3); PLATELET COUNT 272 K/mm3 (130-400); RED BLOOD COUNT 4.77 M/mm3 (4.10-5.30); REDCELL DISTRIBUTION WIDTH-CV 14.5 % (11.5-14.5)
[2021-06-01 16:47] LABS: INR 1.1 (0.8-3.0); PROTHROMBIN TIME 11.7 SECONDS (9.7-12.8)
[2021-06-01 16:55] LABS: ALANINE AMINOTRANSFERASE 16 U/L (0-55); ALBUMIN 4.6 gm/dL (3.4-4.8); ALCOHOL(ethanol),MEDICAL 211 mg/dL (0-10); ALKALINE PHOSPHATASE 99 U/L (40-150); ANION GAP 11 mmol/L (7-16); AST,SGOT 18 U/L (5-34); BLOOD UREA NITROGEN 11 mg/dL (10-20); CALCIUM 10.8 mg/dL (8.4-10.2); CARBON DIOXIDE 24 mmol/L (23-31); CHLORIDE 112 mmol/L (98-107); CREATININE, serum 0.73 mg/dL (0.57-1.11); GLUCOSE 86 mg/dL (70-99); SODIUM 147 mmol/L (136-145); TOTAL PROTEIN 8.1 gm/dL (6.2-8.1)
[2021-06-01 17:02] LABS: TROPONIN-I < 0.010 ng/mL (0.00-0.033)
[2021-06-01 18:10] VITALS: BP 107/83; PULSE 75
== END 2021-06-01 18:10 | disposition home or self-care (01) ==
LOC: COL.ER 16:07
PROVIDERS: Emergency Medicine
DX: F10.129 Alcohol abuse with intoxication, unspecified (principal); I10 Essential (primary) hypertension; Z86.73 Personal history of transient ischemic attack (TIA), and cerebral infarction without residual deficits; Y90.7 Blood alcohol level of 200-239 mg/100 ml
CPT/HCPCS: J7030

== ENCOUNTER 2021-08-24 10:02 | Emergency (ER) | payer MEDICAID ==
[~2021-08-24] VITALS: Ht 175.3 cm; Wt 54.5 kg
[2021-08-24 11:11] LABS: COLLECTION METHOD CLEAN CATCH
[2021-08-24 11:24] LABS: MUCOUS Present (NOT PRESENT); PH 6 (5-8); URINE APPEARANCE Hazy (CLEAR/HAZY); URINE BACTERIA Rare /hpf (NONE SEEN); URINE BILIRUBIN Negative (NEGATIVE); URINE BLOOD Negative (NEGATIVE); URINE COLOR Yellow (YELLOW); URINE GLUCOSE Negative (NEGATIVE); URINE KETONE Negative (NEGATIVE); URINE LEUKOCYTE ESTERASE 2+ (NEGATIVE); URINE NITRATE Negative (NEGATIVE); URINE PROTEIN(semi-quant) Negative (NEGATIVE)
[2021-08-24 11:26] LABS: ALBUMIN 4.3 gm/dL (3.4-4.8); C-REACTIVE PROTEIN 0.03 mg/dL (0.00-0.50); CALCIUM 9.8 mg/dL (8.4-10.2); CREATININE, serum 0.7 mg/dL (0.57-1.11); POTASSIUM 4.2 mmol/L (3.5-4.5); TOTAL PROTEIN 7.7 gm/dL (6.2-8.1)
[2021-08-24 11:28] LABS: BASO % 0.5 % (0.0-2.0); EOS # 0.2 K/mm3 (0.0-0.7); EOS % 2.7 % (0.0-4.0); GRAN # 2.6 K/mm3 (1.4-6.5); GRAN % 45.9 % (42.2-75.2); HEMOGLOBIN 11.7 g/dl (12.5-16.0); LYMPH # 2.3 K/mm3 (1.2-3.4); LYMPH % 41.4 % (20.0-51.0); MEAN CELL VOLUME 78 fl (80.0-100.0); MEAN CORPUSCULAR HEMOGLOBIN 27 pg (27-31); MEAN CORPUSCULAR HGB CONC 35 g/dl (33.0-37.0); MONO # 0.5 K/mm3 (0.1-0.6); MONO % 9.3 % (1.7-9.3); PLATELET COUNT 227 K/mm3 (130-400); RED BLOOD COUNT 4.28 M/mm3 (4.10-5.30); REDCELL DISTRIBUTION WIDTH-CV 14.6 % (11.5-14.5)
[2021-08-24 11:29] LABS: HEMATOCRIT 33.3 % (37.0-47.0)
[2021-08-24] MEDS ORDERED: FLAGYL500 MG PO (14:02)
[2021-08-24] MEDS ORDERED: CEFTIN 250250 MG/TAB PO (14:02)
[2021-08-24 14:26] VITALS: BP 123/72; PULSE 68; TEMP 98.3
== END 2021-08-24 14:26 | disposition home or self-care (01) ==
LOC: COL.ER 10:02
PROVIDERS: Emergency Medicine; Nurse Practitioner
DX: N39.0 Urinary tract infection, site not specified (principal); A59.01 Trichomonal vulvovaginitis; F17.210 Nicotine dependence, cigarettes, uncomplicated; Z28.310 Unvaccinated for COVID-19
CPT/HCPCS: J7030; Q9967

== ENCOUNTER 2022-12-10 14:30 | Outpatient (RCR) | payer MEDICAID ==
[~2022-12-10 14:30] MED LIST changes: +CEFTIN 250250 MG/TAB PO; +FLAGYL500 MG PO
== END 2022-12-13 | disposition still patient (30) ==
LOC: MKS.ESL.PT
DX: I69.351 Hemiplegia and hemiparesis following cerebral infarction affecting right dominant side (principal)

== ENCOUNTER 2022-12-19 08:39 | Outpatient (RCR) | payer MEDICAID | END 2023-01-12 | LOC: MKS.ESL.PT | DX: I69.351 Hemiplegia and hemiparesis following cerebral infarction affecting right dominant side (principal); I63.512 Cerebral infarction due to unspecified occlusion or stenosis of left middle cerebral artery ==

== ENCOUNTER 2023-02-07 11:05 | Emergency (ER) | payer MEDICAID ==
[~2023-02-07] VITALS: Ht 167.6 cm; Wt 52.3 kg
[2023-02-07 11:32] LABS: BASO # 0.1 K/mm3 (0.0-0.2); BASO % 0.9 % (0.0-2.0); EOS # 0.2 K/mm3 (0.0-0.7); EOS % 2.6 % (0.0-4.0); GRAN # 3.7 K/mm3 (1.4-6.5); GRAN % 63.2 % (42.2-75.2); HEMOGLOBIN 11.6 g/dl (12.5-16.0); LYMPH # 1.4 K/mm3 (1.2-3.4); LYMPH % 23.5 % (20.0-51.0); MEAN CELL VOLUME 80 fl (80.0-100.0); MEAN CORPUSCULAR HEMOGLOBIN 28 pg (27-31); MEAN CORPUSCULAR HGB CONC 35 g/dl (33.0-37.0); MEAN PLATELET VOLUME 11.9 fl (7.4-10.4); MONO # 0.6 K/mm3 (0.1-0.6); MONO % 9.6 % (1.7-9.3); PLATELET COUNT 269 K/mm3 (130-400); RED BLOOD COUNT 4.12 M/mm3 (4.10-5.30); REDCELL DISTRIBUTION WIDTH-CV 14.6 % (11.5-14.5)
[2023-02-07 11:42] LABS: HEMATOCRIT 32.9 % (37.0-47.0)
[2023-02-07 12:23] LABS: ALBUMIN 3.9 gm/dL (3.4-4.8); BILIRUBIN,TOTAL 0.7 mg/dL (0.2-1.2); C-REACTIVE PROTEIN 0.06 mg/dL (0.00-0.50); CALCIUM 9.8 mg/dL (8.4-10.2); CREATININE, serum 0.7 mg/dL (0.57-1.11); MAGNESIUM 1.7 mg/dL (1.6-2.6); TOTAL PROTEIN 7.1 gm/dL (6.2-8.1)
[2023-02-07 13:15] LABS: COLLECTION METHOD CLEAN CATCH
[2023-02-07 13:52] VITALS: BP 104/76
[2023-02-07 13:53] LABS: PH 8.5 (5.0-8.5); URINE APPEARANCE Clear (CLEAR/HAZY); URINE BLOOD Negative (NEGATIVE); URINE COLOR Yellow (YELLOW); URINE GLUCOSE Negative (NEGATIVE); URINE KETONE Negative (NEGATIVE); URINE NITRATE Negative (NEGATIVE); URINE PROTEIN(semi-quant) Negative (NEGATIVE); URINE UROBILINOGEN 0.2 E.U/dL (0.2-1.0)
[2023-02-07 13:55] LABS: AMORPHOUS CRYSTAL Present (NOT PRESENT); URINE RBC 0-2 /hpf (0-2)
[2023-02-07 15:30] VITALS: PULSE 61
== END 2023-02-07 15:30 | disposition home or self-care (01) ==
LOC: COL.ER 11:05
PROVIDERS: Emergency Medicine
DX: K59.00 Constipation, unspecified (principal); Z79.1 Long term (current) use of non-steroidal anti-inflammatories (NSAID)
CPT/HCPCS: J2270; J7040; Q9967